=== PATIENT | female | born 1955 | race Hispanic/Latino ===

== ENCOUNTER 2018-08-10 14:26 | Emergency (ER) | payer BC ==
[~2018-08-10 14:26] MED LIST: GLIM4TAB3 PO; LORA1TAB3 PO; LOSA50TA25 PO; METF-444 PO; METO50TA18 PO; SITA100T12 PO; TURM500C9 PO; VITAMIN D PO
[2018-08-10 15:01] LABS: APPEARANCE,URINE Clear (CLEAR); BILIRUBIN,URINE Negative (NEGATIVE); COLOR,URINE Yellow (YELLOW); GLUCOSE, URINE (UA) Negative (NEGATIVE); KETONES,URINE Negative (NEGATIVE); LEUKOCYTE ESTERASE ,URINE Small (NEGATIVE); NITRATE,URINE Positive (NEGATIVE); OCCULT BLOOD,URINE Negative (NEGATIVE); PROTEIN,URINE Negative (NEGATIVE)
[2018-08-10 15:09] LABS: BACTERIA,URINE Few /HPF (None Seen); RBC,URINE None Seen /HPF (0-1); SQUAMOUS EPITHELIAL CELL,UR 0-2 /HPF (0-2)
[2018-08-10 15:40] LABS: BASOPHILS % (AUTO) 1.7 % (0.0-5.0); EOSINOPHILS % (AUTO) 1.4 % (0.0-8.0); LYMPHOCYTES % (AUTO) 26.6 % (21.0-51.0); MEAN CORPUSCULAR HEMOGLOBIN 31.4 pg (27.0-33.0); MEAN CORPUSCULAR HGB CONC 33.8 g/dL (32.0-36.0); MEAN CORPUSCULAR VOLUME 93.1 fL (79-99); MONOCYTES % (AUTO) 6.9 % (3.0-13.0); NEUTROPHILS % (AUTO) 63.4 % (40.0-77.0); PLATELET COUNT (AUTO) 288 K/uL (130-400); RED BLOOD CELL COUNT(AUTO) 4.29 MIL/uL (4.00-5.50); RED CELL DISTRIBUTION WIDTH 12.6 % (11.0-15.5); WHITE BLOOD COUNT (AUTO) 8.7 K/uL (4.8-10.8)
[2018-08-10 16:00] LABS: AMYLASE 57 U/L (25-115); CREATININE 0.7 mg/dL (0.5-1.5); LIPASE 315 U/L (114-286); POTASSIUM 3.8 mmol/L (3.5-5.1)
[2018-08-10 16:02] LABS: INR 1.01 (0.85-1.15); PARTIAL THROMBOPLASTIN TIME 28.5 SEC (26.3-35.5); PROTHROMBIN TIME 10.6 SEC (9.6-11.6)
[2018-08-10 16:05] LABS: ALBUMIN 3.4 g/dL (3.5-5.0); BILIRUBIN,TOTAL 0.3 mg/dL (0.2-1.0); TOTAL PROTEIN, SERUM 7.3 g/dL (6.0-8.3)
[2018-08-10 16:20] LABS: CREATINE KINASE, TOTAL 82 U/L (21-232); MYOGLOBIN 31 ng/mL (10-92); TROPONIN I < 0.04 ng/mL (0.00-0.06)
[2018-08-10] MEDS ORDERED: KETOROLAC TROMETHAMINE 30MG/ML ONE (17:17)
[2018-08-10] MEDS ORDERED: LEVOFLOXACIN 500 MG TABLET ONE (18:00)
== END 2018-08-10 18:17 | disposition home or self-care (01) ==
LOC: EDH 14:26
DX: R10.11 Right upper quadrant pain (principal); E11.65 Type 2 diabetes mellitus with hyperglycemia; R03.0 Elevated blood-pressure reading, without diagnosis of hypertension; N39.0 Urinary tract infection, site not specified; G43.909 Migraine, unspecified, not intractable, without status migrainosus; F41.9 Anxiety disorder, unspecified; Z88.8 Allergy status to other drugs, medicaments and biological substances; Z90.710 Acquired absence of both cervix and uterus; Z98.890 Other specified postprocedural states
CPT/HCPCS: 36415; 71045; 76705; 80053; 81001; 82150; 82550; 83690; 83874; 84484; 85025; 85610; 85730; 87077; 87088; 87186; 93005; 96374; 99285; J1885

== ENCOUNTER 2018-08-30 04:02 | Emergency (ER) | payer BC ==
[2018-08-30] MEDS ORDERED: ONDANSETRON HCL 4 MG/2 ML VIAL ONE (04:34)
[2018-08-30 04:49] LABS: BASOPHILS % (AUTO) 0.2 % (0.0-5.0); EOSINOPHILS % (AUTO) 0.3 % (0.0-8.0); HEMATOCRIT 41.1 % (36-48); MEAN CORPUSCULAR HEMOGLOBIN 31.8 pg (27.0-33.0); MEAN CORPUSCULAR HGB CONC 34.3 g/dL (32.0-36.0); MEAN CORPUSCULAR VOLUME 92.8 fL (79-99); MONOCYTES % (AUTO) 4.1 % (3.0-13.0); NEUTROPHILS % (AUTO) 93.4 % (40.0-77.0); PLATELET COUNT (AUTO) 226 K/uL (130-400); RED BLOOD CELL COUNT(AUTO) 4.43 MIL/uL (4.00-5.50); RED CELL DISTRIBUTION WIDTH 12.7 % (11.0-15.5); WHITE BLOOD COUNT (AUTO) 13.3 K/uL (4.8-10.8)
[2018-08-30 05:08] LABS: CREATININE 0.6 mg/dL (0.5-1.5); POTASSIUM 3.5 mmol/L (3.5-5.1)
[2018-08-30 05:16] LABS: ALBUMIN 3.3 g/dL (3.5-5.0); BILIRUBIN,DIRECT 0.1 mg/dL (0.0-0.3); BILIRUBIN,TOTAL 0.8 mg/dL (0.2-1.0)
[2018-08-30] MEDS ORDERED: KETOROLAC TROMETHAMINE 30MG/ML ONE (05:56)
== END 2018-08-30 06:33 | disposition home or self-care (01) ==
LOC: EDH 04:02
DX: K52.9 Noninfective gastroenteritis and colitis, unspecified (principal); I10 Essential (primary) hypertension; G43.909 Migraine, unspecified, not intractable, without status migrainosus; F41.9 Anxiety disorder, unspecified; Z90.710 Acquired absence of both cervix and uterus; Z88.8 Allergy status to other drugs, medicaments and biological substances
CPT/HCPCS: 36415; 74176; 80048; 80076; 82550; 83690; 85025; 93005; 96361; 96374; 96375; 99285; J1885; J2405

== ENCOUNTER 2019-05-25 07:13 | Emergency (ER) | payer BC ==
[~2019-05-25 07:13] MED LIST changes: -LOSA50TA25 PO; +LOSA50TA64 PO
[2019-05-25 08:11] LABS: APPEARANCE,URINE CLEAR (CLEAR); BILIRUBIN,URINE NEGATIVE (NEGATIVE); COLOR,URINE YELLOW (YELLOW); GLUCOSE, URINE (UA) 250 mg/dL (NEGATIVE); KETONES,URINE NEGATIVE (NEGATIVE); LEUKOCYTE ESTERASE ,URINE TRACE (NEGATIVE); NITRATE,URINE NEGATIVE (NEGATIVE); OCCULT BLOOD,URINE NEGATIVE (NEGATIVE); PH,URINE 5.5 (5.0-8.0); PROTEIN,URINE NEGATIVE (NEGATIVE)
[2019-05-25 08:12] LABS: BASOPHILS % (AUTO) 0.9 % (0.0-5.0); EOSINOPHILS % (AUTO) 1.2 % (0.0-8.0); HEMATOCRIT 42.7 % (36-48); LYMPHOCYTES % (AUTO) 22.1 % (21.0-51.0); MEAN CORPUSCULAR HEMOGLOBIN 32.5 pg (27.0-33.0); MEAN CORPUSCULAR HGB CONC 34.5 g/dL (32.0-36.0); MEAN CORPUSCULAR VOLUME 94.3 fL (79-99); MONOCYTES % (AUTO) 6.4 % (3.0-13.0); NEUTROPHILS % (AUTO) 69.4 % (40.0-77.0); PLATELET COUNT (AUTO) 244 K/uL (130-400); RED BLOOD CELL COUNT(AUTO) 4.53 MIL/uL (4.00-5.50); RED CELL DISTRIBUTION WIDTH 13.4 % (11.0-15.5); WHITE BLOOD COUNT (AUTO) 6.7 K/uL (4.8-10.8)
[2019-05-25] MEDS ORDERED: DiphenhydrAMINE HCL 50 MG/ML VIAL ONE (08:29)
[2019-05-25] MEDS ORDERED: METHYLPREDNISOLONE SOD SUCC 40MG/ML 1ML ONE (08:29)
[2019-05-25] MEDS ORDERED: SODIUM CHLORIDE 0.9% 500ML 500 ML IV ONE (08:30)
[2019-05-25 08:38] LABS: BACTERIA,URINE Few /HPF (None Seen); RBC,URINE 0-1 /HPF (0-1); WBC,URINE 0-1 /HPF (0-1)
[2019-05-25 08:42] LABS: CREATININE 0.6 mg/dL (0.5-1.5); POTASSIUM 3.7 mmol/L (3.5-5.1)
[2019-05-25 08:50] LABS: ALBUMIN 3.4 g/dL (3.5-5.0); BILIRUBIN,DIRECT 0.1 mg/dL (0.0-0.3); BILIRUBIN,TOTAL 0.6 mg/dL (0.2-1.0); TOTAL PROTEIN, SERUM 7.1 g/dL (6.0-8.3)
[2019-05-25] MEDS ORDERED: INSULIN HUMULIN R 100 UNIT/ML 3ML ONE (09:31)
[2019-05-25] MEDS ORDERED: KETOROLAC TROMETHAMINE 30MG/ML ONE (10:19)
== END 2019-05-25 11:18 | disposition home or self-care (01) ==
LOC: EDH 07:13
DX: G43.009 Migraine without aura, not intractable, without status migrainosus (principal); E11.65 Type 2 diabetes mellitus with hyperglycemia; H54.3 Unqualified visual loss, both eyes; I10 Essential (primary) hypertension; F41.9 Anxiety disorder, unspecified; Z88.8 Allergy status to other drugs, medicaments and biological substances; Z98.890 Other specified postprocedural states; Z90.710 Acquired absence of both cervix and uterus; Z79.899 Other long term (current) drug therapy
CPT/HCPCS: 36415; 70450; 80048; 80076; 81001; 85025; 93005; 96374; 96375; 99285; J1200; J1815; J1885; J2920; J7040

== ENCOUNTER 2019-07-23 17:53 | Emergency (ER) | payer BC ==
[2019-07-23] MEDS ORDERED: PROCHLORPERAZINE EDISYLATE 10 MG/2 ML VIAL ONE (18:28)
[2019-07-23] MEDS ORDERED: DiphenhydrAMINE HCL 50 MG/ML VIAL ONE (18:28)
[2019-07-23] MEDS ORDERED: KETOROLAC TROMETHAMINE 30MG/ML ONE (18:28)
[2019-07-23] MEDS ORDERED: SODIUM CHLORIDE 0.9% 1000ML 1,000 ML IV ONE (18:29)
[2019-07-23 18:56] LABS: APPEARANCE,URINE Clear (CLEAR); BILIRUBIN,URINE Negative (NEGATIVE); COLOR,URINE Yellow (YELLOW); GLUCOSE, URINE (UA) Negative (NEGATIVE); KETONES,URINE Negative (NEGATIVE); LEUKOCYTE ESTERASE ,URINE Small (NEGATIVE); NITRATE,URINE Negative (NEGATIVE); OCCULT BLOOD,URINE Negative (NEGATIVE); PROTEIN,URINE Negative (NEGATIVE)
[2019-07-23 19:10] LABS: BACTERIA,URINE Rare /HPF (None Seen); RBC,URINE None Seen /HPF (0-1); WBC,URINE 0-1 /HPF (0-1)
== END 2019-07-23 20:11 | disposition home or self-care (01) ==
LOC: EDH 17:53
DX: G43.909 Migraine, unspecified, not intractable, without status migrainosus (principal); I10 Essential (primary) hypertension; E11.9 Type 2 diabetes mellitus without complications; F41.9 Anxiety disorder, unspecified; Z88.8 Allergy status to other drugs, medicaments and biological substances
CPT/HCPCS: 81001; 96374; 96375; 99284; J0780; J1200; J1885; J7030

== ENCOUNTER 2019-08-02 07:44 | Emergency (ER) | payer BC ==
[~2019-08-02 07:44] MED LIST changes: -GLIM4TAB3 PO; +GLIM4TAB5 PO
[2019-08-02] MEDS ORDERED: LIDOCAINE 5% TOPICAL PATCH TP ONE ×2 (08:19→08:23)
[2019-08-02] MEDS ORDERED: DEXAMETHASONE SOD PHOSPHATE 10MG/ML 1ML VIAL ONE (08:19)
[2019-08-02] MEDS ORDERED: KETOROLAC TROMETHAMINE 60 MG/2 ML VIAL ONE (08:19)
== END 2019-08-02 09:05 | disposition home or self-care (01) ==
LOC: EDH 07:44
DX: M50.30 Other cervical disc degeneration, unspecified cervical region (principal); G43.909 Migraine, unspecified, not intractable, without status migrainosus; H57.89 Other specified disorders of eye and adnexa; F41.9 Anxiety disorder, unspecified; I10 Essential (primary) hypertension; Z88.8 Allergy status to other drugs, medicaments and biological substances; Z79.4 Long term (current) use of insulin; Z98.890 Other specified postprocedural states; Z90.710 Acquired absence of both cervix and uterus
CPT/HCPCS: 96372 ×2; 99284; J1100; J1885

== ENCOUNTER 2020-01-22 00:27 | Emergency (ER) | payer BC ==
[~2020-01-22 00:27] MED LIST changes: +GLIM4TAB36 PO; -GLIM4TAB5 PO
[2020-01-22 00:59] LABS: APPEARANCE,URINE CLOUDY (CLEAR); BILIRUBIN,URINE NEGATIVE (NEGATIVE); COLOR,URINE YELLOW (YELLOW); GLUCOSE, URINE (UA) NEGATIVE (NEGATIVE); KETONES,URINE NEGATIVE (NEGATIVE); LEUKOCYTE ESTERASE ,URINE NEGATIVE (NEGATIVE); NITRATE,URINE NEGATIVE (NEGATIVE); OCCULT BLOOD,URINE NEGATIVE (NEGATIVE); PROTEIN,URINE NEGATIVE (NEGATIVE)
[2020-01-22 01:10] LABS: BASOPHILS % (AUTO) 0.9 % (0.0-5.0); EOSINOPHILS % (AUTO) 1.5 % (0.0-8.0); HEMATOCRIT 42.2 % (36-48); LYMPHOCYTES % (AUTO) 23.1 % (21.0-51.0); MEAN CORPUSCULAR HEMOGLOBIN 32.6 pg (27.0-33.0); MEAN CORPUSCULAR HGB CONC 33.4 g/dL (32.0-36.0); MEAN CORPUSCULAR VOLUME 97.7 fL (79-99); MONOCYTES % (AUTO) 7.8 % (3.0-13.0); NEUTROPHILS % (AUTO) 66.3 % (40.0-77.0); PLATELET COUNT (AUTO) 317 K/uL (130-400); RED BLOOD CELL COUNT(AUTO) 4.32 MIL/uL (4.00-5.50); RED CELL DISTRIBUTION WIDTH 11.9 % (11.0-15.5); WHITE BLOOD COUNT (AUTO) 11.4 K/uL (4.8-10.8)
[2020-01-22 01:23] LABS: CREATININE 0.8 mg/dL (0.5-1.5); POTASSIUM 3.9 mmol/L (3.5-5.1)
[2020-01-22 01:28] LABS: ALBUMIN 3.3 g/dL (3.5-5.0); BILIRUBIN,TOTAL 0.3 mg/dL (0.2-1.0); TOTAL PROTEIN, SERUM 7.2 g/dL (6.0-8.3)
[2020-01-22 01:31] LABS: BACTERIA,URINE Few /HPF (None Seen); RBC,URINE 0-1 /HPF (0-1); WBC,URINE 0-1 /HPF (0-1)
[2020-01-22 01:32] LABS: AMORPHOUS SEDIMENT,UR Many /LPF (None Seen); CALCIUM OXALATE CRYSTALS,UR Moderate /LPF (None Seen)
[2020-01-22] MEDS ORDERED: ONDANSETRON HCL 4 MG/2 ML VIAL ONE (02:12)
[2020-01-22] MEDS ORDERED: SODIUM CHLORIDE 0.9% 1000ML 1,000 ML IV ONE (02:13)
[2020-01-22 03:50] LABS: CREATINE KINASE, TOTAL 99 U/L (21-232); LIPASE 251 U/L (114-286)
[2020-01-22] MEDS ORDERED: CEFTRIAXONE SODIUM 1 GM ONE (04:02)
[2020-01-22] MEDS ORDERED: SODIUM CHLORIDE 0.9% 100 ML IV ONE (04:02)
== END 2020-01-22 04:30 | disposition home or self-care (01) ==
LOC: EDH 00:27
DX: K52.9 Noninfective gastroenteritis and colitis, unspecified (principal); F41.9 Anxiety disorder, unspecified; E11.9 Type 2 diabetes mellitus without complications; I10 Essential (primary) hypertension; G43.909 Migraine, unspecified, not intractable, without status migrainosus; Z90.49 Acquired absence of other specified parts of digestive tract; Z90.710 Acquired absence of both cervix and uterus; Z79.899 Other long term (current) drug therapy; Z88.9 Allergy status to unspecified drugs, medicaments and biological substances; Z88.8 Allergy status to other drugs, medicaments and biological substances; Z88.6 Allergy status to analgesic agent; Z88.2 Allergy status to sulfonamides
CPT/HCPCS: 36415; 74176; 80053; 81001; 82550; 83690; 84484; 85025; 93005; 96361; 96374; 96375; 99285; J0696; J2405; J7030

== ENCOUNTER 2020-08-08 12:20 | Emergency (ER) | payer BC ==
[2020-08-08 13:31] LABS: EOSINOPHILS % (AUTO) 1.4 % (0.0-8.0); HEMATOCRIT 40.6 % (36-48); LYMPHOCYTES % (AUTO) 24.4 % (21.0-51.0); MEAN CORPUSCULAR HEMOGLOBIN 33.1 pg (27.0-33.0); MEAN CORPUSCULAR HGB CONC 34.5 g/dL (32.0-36.0); MONOCYTES % (AUTO) 7.8 % (3.0-13.0); NEUTROPHILS % (AUTO) 65.1 % (40.0-77.0); PLATELET COUNT (AUTO) 287 K/uL (130-400); RED BLOOD CELL COUNT(AUTO) 4.23 MIL/uL (4.00-5.50); RED CELL DISTRIBUTION WIDTH 11.5 % (11.0-15.5); WHITE BLOOD COUNT (AUTO) 7.8 K/uL (4.8-10.8)
[2020-08-08] MEDS ORDERED: PROCHLORPERAZINE EDISYLATE 10 MG/2 ML VIAL ONE (13:41)
[2020-08-08 13:47] LABS: CREATININE 0.7 mg/dL (0.5-1.5); POTASSIUM 3.8 mmol/L (3.5-5.1)
[2020-08-08 13:50] LABS: INR 0.93 (0.85-1.15); PARTIAL THROMBOPLASTIN TIME 26.1 SEC (26.3-35.5); PROTHROMBIN TIME 10.1 SEC (9.6-11.6)
[2020-08-08 14:00] LABS: B-TYPE NATRIURETIC PEPTIDE 40 pg/mL (0-100)
[2020-08-08 14:05] LABS: ALBUMIN 3.3 g/dL (3.5-5.0); BILIRUBIN,TOTAL 0.4 mg/dL (0.2-1.0); TOTAL PROTEIN, SERUM 7.2 g/dL (6.0-8.3)
== END 2020-08-08 15:07 | disposition home or self-care (01) ==
LOC: EDH 12:20
DX: R00.2 Palpitations (principal); F41.9 Anxiety disorder, unspecified; I10 Essential (primary) hypertension; G43.909 Migraine, unspecified, not intractable, without status migrainosus; E11.9 Type 2 diabetes mellitus without complications; Z90.49 Acquired absence of other specified parts of digestive tract; Z90.710 Acquired absence of both cervix and uterus; Z88.3 Allergy status to other anti-infective agents; Z88.8 Allergy status to other drugs, medicaments and biological substances; Z88.6 Allergy status to analgesic agent
CPT/HCPCS: 36415; 71045; 80053; 82550; 83880; 84484; 85025; 85610; 85730; 93005; 96374; 99285; J0780

== ENCOUNTER 2020-08-18 16:30 | Emergency (ER) | payer BC | END 2020-08-18 17:23 | disposition home or self-care (01) | LOC: EDH 16:30 | DX: N64.51 Induration of breast (principal); I10 Essential (primary) hypertension; F41.9 Anxiety disorder, unspecified; E11.9 Type 2 diabetes mellitus without complications; G43.909 Migraine, unspecified, not intractable, without status migrainosus; Z88.8 Allergy status to other drugs, medicaments and biological substances; Z90.710 Acquired absence of both cervix and uterus | CPT/HCPCS: 99281 ==

== ENCOUNTER 2020-11-28 14:45 | Emergency (ER) | payer BC ==
[2020-11-28] MEDS ORDERED: ONDANSETRON HCL 4 MG/2 ML VIAL ONE (15:32)
[2020-11-28] MEDS ORDERED: KETOROLAC TROMETHAMINE 30MG/ML ONE (15:32)
[2020-11-28 15:38] LABS: APPEARANCE,URINE Clear (CLEAR); BILIRUBIN,URINE Negative (NEGATIVE); COLOR,URINE Yellow (YELLOW); GLUCOSE, URINE (UA) Negative (NEGATIVE); KETONES,URINE Negative (NEGATIVE); LEUKOCYTE ESTERASE ,URINE Negative (NEGATIVE); NITRATE,URINE Negative (NEGATIVE); OCCULT BLOOD,URINE Negative (NEGATIVE); PROTEIN,URINE Negative (NEGATIVE)
[2020-11-28 16:07] LABS: BASOPHILS % (AUTO) 0.9 % (0.0-5.0); LYMPHOCYTES % (AUTO) 21.1 % (21.0-51.0); MEAN CORPUSCULAR HEMOGLOBIN 32.5 pg (27.0-33.0); MEAN CORPUSCULAR HGB CONC 34.4 g/dL (32.0-36.0); MEAN CORPUSCULAR VOLUME 94.5 fL (79-99); MONOCYTES % (AUTO) 6.2 % (3.0-13.0); NEUTROPHILS % (AUTO) 70.6 % (40.0-77.0); PLATELET COUNT (AUTO) 257 K/uL (130-400); RED BLOOD CELL COUNT(AUTO) 4.34 MIL/uL (4.00-5.50); RED CELL DISTRIBUTION WIDTH 11.8 % (11.0-15.5); WHITE BLOOD COUNT (AUTO) 9.3 K/uL (4.8-10.8)
[2020-11-28 16:13] LABS: CREATININE 0.6 mg/dL (0.5-1.5); POTASSIUM 3.8 mmol/L (3.5-5.1)
[2020-11-28 16:17] LABS: INR 1.05 (0.85-1.15); PROTHROMBIN TIME 11.2 SEC (9.6-11.6)
[2020-11-28 16:18] LABS: PARTIAL THROMBOPLASTIN TIME 23.2 SEC (26.3-35.5)
[2020-11-28 16:20] LABS: ALBUMIN 3.4 g/dL (3.5-5.0); BILIRUBIN,TOTAL 0.4 mg/dL (0.2-1.0); TOTAL PROTEIN, SERUM 7.5 g/dL (6.0-8.3)
[2020-11-28] MEDS ORDERED: IOHEXOL-350 75 ML VIAL IV ONE (16:30)
== END 2020-11-28 17:26 | disposition home or self-care (01) ==
LOC: EDH 14:45
DX: R10.12 Left upper quadrant pain (principal); F41.9 Anxiety disorder, unspecified; E11.9 Type 2 diabetes mellitus without complications; I10 Essential (primary) hypertension; G43.909 Migraine, unspecified, not intractable, without status migrainosus; Z90.710 Acquired absence of both cervix and uterus; Z90.49 Acquired absence of other specified parts of digestive tract; Z88.8 Allergy status to other drugs, medicaments and biological substances; Z88.6 Allergy status to analgesic agent; Z88.1 Allergy status to other antibiotic agents
CPT/HCPCS: 36415; 71045; 74177; 80053; 81003; 83690; 84484; 85025; 85610; 85730; 93005; 96361; 96374; 96375; 99285; J1885; J2405; Q9967

== ENCOUNTER 2021-01-27 12:18 | Observation (INO) | payer BC ==
[~2021-01-27] VITALS: Ht 165.1 cm; Wt 90.7 kg
[2021-01-27 12:48] LABS: BASOPHILS % (AUTO) 0.9 % (0.0-5.0); EOSINOPHILS % (AUTO) 0.8 % (0.0-8.0); LYMPHOCYTES % (AUTO) 19.2 % (21.0-51.0); MEAN CORPUSCULAR HEMOGLOBIN 33.2 pg (27.0-33.0); MEAN CORPUSCULAR HGB CONC 34.8 g/dL (32.0-36.0); MEAN CORPUSCULAR VOLUME 95.5 fL (79-99); PLATELET COUNT (AUTO) 276 K/uL (130-400); RED BLOOD CELL COUNT(AUTO) 4.19 MIL/uL (4.00-5.50); WHITE BLOOD COUNT (AUTO) 7.8 K/uL (4.8-10.8)
[2021-01-27 13:00] LABS: CREATININE 0.6 mg/dL (0.5-1.5); INR 1.05 (0.85-1.15); POTASSIUM 3.7 mmol/L (3.5-5.1); PROTHROMBIN TIME 11.4 SEC (9.6-11.6)
[2021-01-27 13:01] LABS: PARTIAL THROMBOPLASTIN TIME 27.3 SEC (26.3-35.5)
[2021-01-27 13:05] LABS: ALBUMIN 3.4 g/dL (3.5-5.0); BILIRUBIN,TOTAL 0.5 mg/dL (0.2-1.0); TOTAL PROTEIN, SERUM 7.2 g/dL (6.0-8.3)
[2021-01-27 13:10] LABS: APPEARANCE,URINE Cloudy (CLEAR); BILIRUBIN,URINE Negative (NEGATIVE); COLOR,URINE Yellow (YELLOW); GLUCOSE, URINE (UA) TRACE mg/dL (NEGATIVE); KETONES,URINE Negative (NEGATIVE); LEUKOCYTE ESTERASE ,URINE Negative (NEGATIVE); NITRATE,URINE Negative (NEGATIVE); OCCULT BLOOD,URINE Negative (NEGATIVE); PROTEIN,URINE Negative (NEGATIVE)
[2021-01-27 13:16] LABS: BACTERIA,URINE Few /HPF (None Seen); RBC,URINE 0-1 /HPF (0-1); WBC,URINE 0-1 /HPF (0-1); YEAST,URINE BUDDING Few /HPF (None Seen)
[2021-01-27] MEDS ORDERED: NITROGLYCERIN 1GM/1 INCH PACKET TD ONE (14:37)
[2021-01-27] MEDS: SODIUM CHLORIDE 0.9% 1000ML 1,000 ML IV SCH (16:00)
[2021-01-27] MEDS ORDERED: ACETAMINOPHEN 325 MG TAB PO PRN ×2 (16:00)
[2021-01-27] MEDS ORDERED: MORPHINE SULFATE 2 MG/ML 1ML SYG IV PRN (16:00)
[2021-01-27] MEDS: INSULIN HUMULIN R 100 UNIT/ML 3ML SQ SCH (16:00)
[2021-01-27] MEDS ORDERED: HYDRALAZINE HCL 20 MG/ML VIAL IV PRN (16:00)
[2021-01-27] MEDS ORDERED: ONDANSETRON HCL 4 MG/2 ML VIAL IV PRN (16:00)
[2021-01-27] MEDS ORDERED: LACTULOSE 20 GM/30 ML UDCUP PO PRN (16:00)
[2021-01-27 16:29] LABS: HEMOGLOBIN A1C 6.9 % (4.0-6.0)
[2021-01-27 16:42] LABS: THYROID STIMULATING HORMONE 0.69 uIU/mL (0.36-3.74)
[2021-01-27] MEDS ORDERED: ONDANSETRON HCL 4 MG/2 ML VIAL ONE (16:57)
[2021-01-27] MEDS ORDERED: MORPHINE SULFATE 2 MG/ML 1ML SYG ONE (16:57)
[2021-01-27] MEDS ORDERED: BISACODYL 5 MG TABLET.DR PO ONE (20:13)
[2021-01-27] MEDS ORDERED: FAMOTIDINE/PF 20 MG/2 ML VIAL IV ONE (20:14)
[2021-01-27] MEDS ORDERED: SODIUM CHLORIDE 0.9% 1000ML 1,000 ML IV ONE (20:15)
[2021-01-27] MEDS: FAMOTIDINE/PF 20 MG/2 ML VIAL IV SCH (21:00)
[2021-01-27] MEDS: BISACODYL 5 MG TABLET.DR PO SCH (21:00)
[2021-01-28] MEDS ORDERED: ACETAMINOPHEN 325 MG TAB ONE ×2 (00:06→08:02)
[2021-01-28] MEDS: SODIUM CHLORIDE 0.9% 1000ML 1,000 ML IV SCH ×3 (02:00→22:00)
[2021-01-28 05:34] LABS: BASOPHILS % (AUTO) 0.8 % (0.0-5.0); EOSINOPHILS % (AUTO) 1.9 % (0.0-8.0); HEMATOCRIT 42.7 % (36-48); LYMPHOCYTES % (AUTO) 32.3 % (21.0-51.0); MEAN CORPUSCULAR HEMOGLOBIN 32.3 pg (27.0-33.0); MEAN CORPUSCULAR VOLUME 97.7 fL (79-99); MONOCYTES % (AUTO) 7.1 % (3.0-13.0); NEUTROPHILS % (AUTO) 57.8 % (40.0-77.0); PLATELET COUNT (AUTO) 271 K/uL (130-400); RED BLOOD CELL COUNT(AUTO) 4.37 MIL/uL (4.00-5.50); RED CELL DISTRIBUTION WIDTH 11.9 % (11.0-15.5); WHITE BLOOD COUNT (AUTO) 7.7 K/uL (4.8-10.8)
[2021-01-28 06:02] LABS: CREATININE 0.6 mg/dL (0.5-1.5); POTASSIUM 3.8 mmol/L (3.5-5.1)
[2021-01-28] MEDS: FAMOTIDINE/PF 20 MG/2 ML VIAL IV SCH ×2 (09:00→20:08)
[2021-01-28] MEDS: BISACODYL 5 MG TABLET.DR PO SCH ×2 (09:00→20:07)
[2021-01-28] MEDS ORDERED: FAMOTIDINE/PF 20 MG/2 ML VIAL IV ONE (09:49)
[2021-01-28] MEDS: POLYETHYLENE GLYCOL 3350 17 GM POWD.PACK PO SCH (14:14)
[2021-01-28 16:00] VITALS: BP 164/74
[2021-01-28] MEDS ORDERED: PEG 3350/NA SULF,BICARB,CL/KCL 4000 ML SOLN PO ONE (19:15)
[2021-01-28 20:13] VITALS: BP 174/84
[2021-01-28] MEDS: REFRESH EYE DROPS OU SCH (20:14)
[2021-01-28] MEDS: INSULIN HUMULIN R 100 UNIT/ML 3ML SQ SCH (20:18)
[2021-01-28] MEDS ORDERED: LOSARTAN 50 MG TABLET PO SCH (22:45)
[2021-01-29] VITALS (12 sets, daily range): BP systolic 120–158; BP diastolic 61–68
[2021-01-29] MEDS: INSULIN HUMULIN R 100 UNIT/ML 3ML SQ SCH ×3 (06:56→16:30)
[2021-01-29 07:07] LABS: EOSINOPHILS % (AUTO) 1.6 % (0.0-8.0); HEMATOCRIT 39.7 % (36-48); LYMPHOCYTES % (AUTO) 24.8 % (21.0-51.0); MEAN CORPUSCULAR HEMOGLOBIN 32.8 pg (27.0-33.0); MEAN CORPUSCULAR HGB CONC 33.2 g/dL (32.0-36.0); MEAN CORPUSCULAR VOLUME 98.8 fL (79-99); NEUTROPHILS % (AUTO) 64.4 % (40.0-77.0); PLATELET COUNT (AUTO) 253 K/uL (130-400); RED BLOOD CELL COUNT(AUTO) 4.02 MIL/uL (4.00-5.50); WHITE BLOOD COUNT (AUTO) 6.3 K/uL (4.8-10.8)
[2021-01-29 07:35] LABS: CREATININE 0.7 mg/dL (0.5-1.5); POTASSIUM 3.6 mmol/L (3.5-5.1)
[2021-01-29] MEDS: SODIUM CHLORIDE 0.9% 1000ML 1,000 ML IV SCH (08:00)
[2021-01-29] MEDS ORDERED: PROPOFOL 10 MG/ML 20ML VIAL IV ONE (08:50)
[2021-01-29] MEDS ORDERED: INSULIN GLARGINE 100 UNITS/ML 10 ML VIAL SQ SCH (09:00)
[2021-01-29] MEDS: REFRESH EYE DROPS OU SCH (09:00)
[2021-01-29] MEDS ORDERED: LOSARTAN 50 MG TABLET PO SCH (09:00)
[2021-01-29] MEDS ORDERED: METOPROLOL SUCCINATE 50 MG TAB.SR.24H PO SCH (09:00)
[2021-01-29] MEDS: FAMOTIDINE/PF 20 MG/2 ML VIAL IV SCH (09:21)
[2021-01-29] MEDS: POLYETHYLENE GLYCOL 3350 17 GM POWD.PACK PO SCH (09:28)
[2021-01-29] MEDS: BISACODYL 5 MG TABLET.DR PO SCH (09:28)
[2021-01-29] MEDS ORDERED: VALACYCLOVIR HCL 500 MG TABLET PO SCH (12:00)
[2021-01-29] MEDS ORDERED: METR-172 PO (16:45)
[2021-01-29] MEDS ORDERED: CIPR500S5 PO (16:45)
[2021-01-29] MEDS ORDERED: SENN8.6T32 PO (17:42)
[2021-01-29] MEDS ORDERED: DOCU-116 PO (17:42)
== END 2021-01-29 18:21 | disposition home or self-care (01) ==
LOC: EDH 12:18 → EDHIP 15:51 → 3BH 01-28 11:45
PROVIDERS: ADMIT Internal Medicine; ATTEND Internal Medicine
DX: K29.70 Gastritis, unspecified, without bleeding (principal); K59.09 Other constipation; R07.89 Other chest pain; R00.2 Palpitations; K57.30 Diverticulosis of large intestine without perforation or abscess without bleeding; K57.32 Diverticulitis of large intestine without perforation or abscess without bleeding; E11.9 Type 2 diabetes mellitus without complications; I10 Essential (primary) hypertension; F41.9 Anxiety disorder, unspecified; M19.90 Unspecified osteoarthritis, unspecified site; G43.909 Migraine, unspecified, not intractable, without status migrainosus; E78.5 Hyperlipidemia, unspecified; Z86.19 Personal history of other infectious and parasitic diseases; Z98.49 Cataract extraction status, unspecified eye; Z90.710 Acquired absence of both cervix and uterus; Z79.84 Long term (current) use of oral hypoglycemic drugs; Z79.899 Other long term (current) drug therapy; Z88.6 Allergy status to analgesic agent; Z88.8 Allergy status to other drugs, medicaments and biological substances
CPT/HCPCS: 36415 ×3; 43239; 71045; 74176; 80048 ×2; 80053; 80061; 81001; 82550; 82948 ×6; 83036; 83690; 83735; 84443; 84484 ×4; 85025 ×3; 85610; 85730; 93005 ×4; 96361; 96372; 96374; 96376; 99291; A4215; A4222; A4223; A4606; A4620; A4657; G0378 ×48; J2405; J2704; J3490 ×4; J7030 ×2

== ENCOUNTER 2021-02-13 15:05 | Emergency (ER) | payer BC ==
[~2021-02-13 15:05] MED LIST changes: +CIPR500S5 PO; +DOCU-116 PO; +METR-172 PO; +SENN8.6T32 PO
[2021-02-13 16:12] LABS: BASOPHILS % (AUTO) 0.7 % (0.0-5.0); HEMATOCRIT 41.7 % (36-48); LYMPHOCYTES % (AUTO) 17.6 % (21.0-51.0); MEAN CORPUSCULAR HEMOGLOBIN 32.9 pg (27.0-33.0); MEAN CORPUSCULAR HGB CONC 33.8 g/dL (32.0-36.0); MEAN CORPUSCULAR VOLUME 97.4 fL (79-99); MONOCYTES % (AUTO) 5.8 % (3.0-13.0); NEUTROPHILS % (AUTO) 74.7 % (40.0-77.0); PLATELET COUNT (AUTO) 305 K/uL (130-400); RED BLOOD CELL COUNT(AUTO) 4.28 MIL/uL (4.00-5.50); RED CELL DISTRIBUTION WIDTH 11.9 % (11.0-15.5); WHITE BLOOD COUNT (AUTO) 9.4 K/uL (4.8-10.8)
[2021-02-13 16:23] LABS: APPEARANCE,URINE Clear (CLEAR); BILIRUBIN,URINE Negative (NEGATIVE); COLOR,URINE Yellow (YELLOW); GLUCOSE, URINE (UA) Negative (NEGATIVE); KETONES,URINE Negative (NEGATIVE); LEUKOCYTE ESTERASE ,URINE Negative (NEGATIVE); NITRATE,URINE Negative (NEGATIVE); OCCULT BLOOD,URINE Negative (NEGATIVE); PROTEIN,URINE Negative (NEGATIVE)
[2021-02-13 16:28] LABS: CREATININE 0.8 mg/dL (0.5-1.5); POTASSIUM 3.9 mmol/L (3.5-5.1)
[2021-02-13 16:35] LABS: ALBUMIN 3.4 g/dL (3.5-5.0); BILIRUBIN,TOTAL 0.4 mg/dL (0.2-1.0); TOTAL PROTEIN, SERUM 7.2 g/dL (6.0-8.3)
[2021-02-13 16:36] LABS: INR 1.04 (0.85-1.15); PROTHROMBIN TIME 10.8 SEC (9.6-11.6)
== END 2021-02-13 20:21 | disposition home or self-care (01) ==
LOC: EDH 15:05
DX: R00.2 Palpitations (principal); F41.1 Generalized anxiety disorder; E11.9 Type 2 diabetes mellitus without complications; I10 Essential (primary) hypertension; G43.909 Migraine, unspecified, not intractable, without status migrainosus; Z90.49 Acquired absence of other specified parts of digestive tract; Z90.710 Acquired absence of both cervix and uterus; Z88.8 Allergy status to other drugs, medicaments and biological substances; Z88.6 Allergy status to analgesic agent; Z88.1 Allergy status to other antibiotic agents
CPT/HCPCS: 36415; 71045; 80053; 81003; 82550; 84484; 85025; 85610; 85730; 93005

== ENCOUNTER 2021-03-12 14:06 | Emergency (ER) | payer BC ==
[2021-03-12] MEDS ORDERED: LORAZEPAM 1 MG TABLET ONE (14:33)
[2021-03-12 14:57] LABS: BASOPHILS % (AUTO) 0.9 % (0.0-5.0); EOSINOPHILS % (AUTO) 1.2 % (0.0-8.0); HEMATOCRIT 41.6 % (36-48); MEAN CORPUSCULAR HEMOGLOBIN 32.2 pg (27.0-33.0); MEAN CORPUSCULAR HGB CONC 32.9 g/dL (32.0-36.0); MEAN CORPUSCULAR VOLUME 97.7 fL (79-99); MONOCYTES % (AUTO) 6.3 % (3.0-13.0); NEUTROPHILS % (AUTO) 70.4 % (40.0-77.0); PLATELET COUNT (AUTO) 244 K/uL (130-400); RED BLOOD CELL COUNT(AUTO) 4.26 MIL/uL (4.00-5.50); RED CELL DISTRIBUTION WIDTH 11.9 % (11.0-15.5); WHITE BLOOD COUNT (AUTO) 9.3 K/uL (4.8-10.8)
[2021-03-12 14:58] LABS: APPEARANCE,URINE Clear (CLEAR); BILIRUBIN,URINE Negative (NEGATIVE); COLOR,URINE Yellow (YELLOW); GLUCOSE, URINE (UA) Negative (NEGATIVE); KETONES,URINE Negative (NEGATIVE); LEUKOCYTE ESTERASE ,URINE Trace (NEGATIVE); NITRATE,URINE Negative (NEGATIVE); OCCULT BLOOD,URINE Negative (NEGATIVE); PH,URINE 7.5 (5.0-8.0); PROTEIN,URINE Negative (NEGATIVE)
[2021-03-12 15:11] LABS: CREATININE 0.7 mg/dL (0.5-1.5); POTASSIUM 3.7 mmol/L (3.5-5.1)
[2021-03-12 15:15] LABS: ALBUMIN 3.4 g/dL (3.5-5.0); BILIRUBIN,TOTAL 0.3 mg/dL (0.2-1.0); TOTAL PROTEIN, SERUM 7.3 g/dL (6.0-8.3)
[2021-03-12 15:24] LABS: BACTERIA,URINE Few /HPF (None Seen); RBC,URINE 0-1 /HPF (0-1); SQUAMOUS EPITHELIAL CELL,UR Few /HPF (0-2)
== END 2021-03-12 15:32 | disposition home or self-care (01) ==
LOC: EDH 14:06
DX: F41.1 Generalized anxiety disorder (principal); R00.2 Palpitations; I10 Essential (primary) hypertension; G43.909 Migraine, unspecified, not intractable, without status migrainosus; E11.9 Type 2 diabetes mellitus without complications; Z90.710 Acquired absence of both cervix and uterus; Z88.6 Allergy status to analgesic agent; Z88.8 Allergy status to other drugs, medicaments and biological substances
CPT/HCPCS: 36415; 71045; 80053; 81001; 84484; 85025; 93005

== ENCOUNTER 2021-03-17 08:52 | Emergency (ER) | payer BC ==
[2021-03-17 09:39] LABS: APPEARANCE,URINE Cloudy (CLEAR); BILIRUBIN,URINE Negative (NEGATIVE); COLOR,URINE Yellow (YELLOW); GLUCOSE, URINE (UA) Negative (NEGATIVE); KETONES,URINE Negative (NEGATIVE); LEUKOCYTE ESTERASE ,URINE Trace (NEGATIVE); NITRATE,URINE Negative (NEGATIVE); OCCULT BLOOD,URINE Negative (NEGATIVE); PROTEIN,URINE Negative (NEGATIVE)
[2021-03-17 09:46] LABS: BACTERIA,URINE Moderate /HPF (None Seen); RBC,URINE None Seen /HPF (0-1); SQUAMOUS EPITHELIAL CELL,UR Moderate /HPF (0-2); WBC,URINE 0-1 /HPF (0-1)
[2021-03-17] MEDS ORDERED: ONDANSETRON HCL 4 MG/2 ML VIAL ONE (09:52)
[2021-03-17] MEDS ORDERED: SODIUM CHLORIDE 0.9% 1000ML 1,000 ML IV ONE (09:53)
[2021-03-17 09:57] LABS: BASOPHILS % (AUTO) 0.9 % (0.0-5.0); EOSINOPHILS % (AUTO) 0.9 % (0.0-8.0); HEMATOCRIT 42.3 % (36-48); LYMPHOCYTES % (AUTO) 19.6 % (21.0-51.0); MEAN CORPUSCULAR HEMOGLOBIN 31.8 pg (27.0-33.0); MEAN CORPUSCULAR HGB CONC 33.3 g/dL (32.0-36.0); MEAN CORPUSCULAR VOLUME 95.5 fL (79-99); MONOCYTES % (AUTO) 6.7 % (3.0-13.0); NEUTROPHILS % (AUTO) 71.5 % (40.0-77.0); PLATELET COUNT (AUTO) 285 K/uL (130-400); RED BLOOD CELL COUNT(AUTO) 4.43 MIL/uL (4.00-5.50); RED CELL DISTRIBUTION WIDTH 11.7 % (11.0-15.5)
[2021-03-17 10:09] LABS: CREATININE 0.6 mg/dL (0.5-1.5); POTASSIUM 3.8 mmol/L (3.5-5.1)
[2021-03-17 10:16] LABS: ALBUMIN 3.3 g/dL (3.5-5.0); BILIRUBIN,TOTAL 0.7 mg/dL (0.2-1.0); TOTAL PROTEIN, SERUM 7.2 g/dL (6.0-8.3)
== END 2021-03-17 12:21 | disposition home or self-care (01) ==
LOC: EDH 08:52
DX: K59.00 Constipation, unspecified (principal); R11.0 Nausea; F41.9 Anxiety disorder, unspecified; E11.9 Type 2 diabetes mellitus without complications; G43.909 Migraine, unspecified, not intractable, without status migrainosus; I10 Essential (primary) hypertension; Z90.49 Acquired absence of other specified parts of digestive tract; Z90.710 Acquired absence of both cervix and uterus; Z88.6 Allergy status to analgesic agent; Z88.8 Allergy status to other drugs, medicaments and biological substances; Z88.2 Allergy status to sulfonamides; Z88.9 Allergy status to unspecified drugs, medicaments and biological substances
CPT/HCPCS: 36415; 74018; 80053; 81001; 85025; 87088; 96361; 96374; 99284; J2405; J7030

== ENCOUNTER 2021-03-19 10:27 | Emergency (ER) | payer BC ==
[2021-03-19] MEDS ORDERED: METOCLOPRAMIDE 10 MG/2 ML VIAL ONE (11:09)
[2021-03-19 11:25] LABS: APPEARANCE,URINE Clear (CLEAR); BILIRUBIN,URINE Negative (NEGATIVE); COLOR,URINE Yellow (YELLOW); GLUCOSE, URINE (UA) Negative (NEGATIVE); KETONES,URINE Negative (NEGATIVE); LEUKOCYTE ESTERASE ,URINE Negative (NEGATIVE); NITRATE,URINE Negative (NEGATIVE); OCCULT BLOOD,URINE Negative (NEGATIVE); PH,URINE 7.5 (5.0-8.0); PROTEIN,URINE Negative (NEGATIVE)
== END 2021-03-19 14:52 | disposition home or self-care (01) ==
LOC: EDH 10:27
DX: R11.2 Nausea with vomiting, unspecified (principal); F41.9 Anxiety disorder, unspecified; E11.9 Type 2 diabetes mellitus without complications; I10 Essential (primary) hypertension; G43.909 Migraine, unspecified, not intractable, without status migrainosus; Z90.49 Acquired absence of other specified parts of digestive tract; Z90.710 Acquired absence of both cervix and uterus
CPT/HCPCS: 81003; 82948; 96372; 99284; J2765

== ENCOUNTER 2022-05-16 05:53 | Observation (INO) | payer BC, MEDICARE ==
[2022-05-15 12:53] LABS: BASOPHILS % (AUTO) 0.8 % (0.0-5.0); EOSINOPHILS % (AUTO) 1.7 % (0.0-8.0); HEMATOCRIT 39.7 % (36-48); LYMPHOCYTES % (AUTO) 24.3 % (21.0-51.0); MEAN CORPUSCULAR HEMOGLOBIN 31.4 pg (27.0-33.0); MEAN CORPUSCULAR HGB CONC 33.5 g/dL (32.0-36.0); MEAN CORPUSCULAR VOLUME 93.9 fL (79-99); MONOCYTES % (AUTO) 6.5 % (3.0-13.0); NEUTROPHILS % (AUTO) 66.4 % (40.0-77.0); PLATELET COUNT (AUTO) 249 K/uL (130-400); RED BLOOD CELL COUNT(AUTO) 4.23 MIL/uL (4.00-5.50); RED CELL DISTRIBUTION WIDTH 12.5 % (11.0-15.5); WHITE BLOOD COUNT (AUTO) 6.5 K/uL (4.8-10.8)
[2022-05-15 13:06] LABS: CREATININE 0.6 mg/dL (0.5-1.5)
[2022-05-15 13:28] LABS: APPEARANCE,URINE Clear (CLEAR); BILIRUBIN,URINE Negative (NEGATIVE); COLOR,URINE Yellow (YELLOW); GLUCOSE, URINE (UA) >=1000 mg/dL (NEGATIVE); KETONES,URINE Negative (NEGATIVE); LEUKOCYTE ESTERASE ,URINE Negative (NEGATIVE); NITRATE,URINE Negative (NEGATIVE); OCCULT BLOOD,URINE Negative (NEGATIVE); PROTEIN,URINE Negative (NEGATIVE); UROBILINOGEN,URINE 0.2 mg/dL (0.2-1.0)
[2022-05-15 13:32] LABS: INR 0.97 (0.85-1.15); PROTHROMBIN TIME 10.6 SEC (9.6-11.6)
[2022-05-15 13:34] LABS: PARTIAL THROMBOPLASTIN TIME 26.5 SEC (26.3-35.5)
[2022-05-15 13:54] LABS: BACTERIA,URINE Rare /HPF (None Seen); SQUAMOUS EPITHELIAL CELL,UR Few /HPF (0-2); WBC,URINE 0-1 /HPF (0-1)
[2022-05-15 15:34] VITALS: BP 156/83
[~2022-05-16] VITALS: Ht 165.1 cm; Wt 91.2 kg
[2022-05-16] VITALS (24 sets, daily range): BP systolic 115–157; BP diastolic 38–86
[~2022-05-16 05:53] MED LIST changes: +CARB15DR OP; +CELE200C PO; -CIPR500S5 PO; +CYCL30CA PO; -DOCU-116 PO; -GLIM4TAB36 PO; +INSU300I3 SQ; +LIFI1DRO OP; -LORA1TAB3 PO; +LOSA100T58 PO; -LOSA50TA64 PO; +METO-391 PO; -METO50TA18 PO; -METR-172 PO; +PREMC VG; -SENN8.6T32 PO; +SENNA TEA PO; +VALA500T42 PO; +WHEA1POW2 PO
[2022-05-16] MEDS ORDERED: 0.9%NACL 1000ML 1,000 ML IV ONE (07:04)
[2022-05-16] MEDS: CEFAZOLIN SODIUM 1 GM VIAL ONE ×2 (07:24→08:40)
[2022-05-16] MEDS ORDERED: SUCCINYLCHOLINE 200MG/10ML SYR ONE (08:27)
[2022-05-16] MEDS ORDERED: DEXAMETHASONE SOD PHOSPHATE 10MG/ML 1ML VIAL ONE (08:27)
[2022-05-16] MEDS ORDERED: LIDOCAINE PF 100MG/5ML (2%) SYRINGE 5ML ONE (08:27)
[2022-05-16] MEDS ORDERED: PROPOFOL 10 MG/ML 20ML VIAL IV ONE (08:27)
[2022-05-16] MEDS ORDERED: MIDAZOLAM HCL 1 MG/ML 2ML VIAL ONE (08:28)
[2022-05-16] MEDS ORDERED: GLYCOPYRROLATE 1 MG/5 ML SYRINGE ONE (08:28)
[2022-05-16] MEDS ORDERED: NEOSTIGMINE 5MG/5ML SYR IV ONE (08:28)
[2022-05-16] MEDS ORDERED: ROCURONIUM 10MG/1ML SYR 10 MG/ML ML ONE (08:28)
[2022-05-16] MEDS ORDERED: ONDANSETRON 4MG INJ ONE ×2 (08:28→10:17)
[2022-05-16] MEDS ORDERED: FENTANYL CITRATE PF 50 MCG/1 ML 2ML VIAL ONE (08:50)
[2022-05-16] MEDS ORDERED: EPHEDRINE SULFATE 50 MG/ML AMPULE ONE (09:28)
[2022-05-16] MEDS ORDERED: MEPERIDINE-PF 25 MG/ML SYG ONE ×2 (10:18→10:30)
[2022-05-16] MEDS ORDERED: SIMETHICONE 80 MG TAB.CHEW PO PRN (12:00)
[2022-05-16] MEDS ORDERED: ONDANSETRON 4MG INJ IVP PRN (12:00)
[2022-05-16] MEDS ORDERED: BISACODYL 10 MG SUPP.RECT RC PRN (12:00)
[2022-05-16] MEDS ORDERED: DOCUSATE SODIUM 100 MG CAP PO PRN (12:00)
[2022-05-16] MEDS ORDERED: PROMETHAZINE HCL 25 MG/ML 1ML AMPULE IM PRN (12:00)
[2022-05-16] MEDS: PROMETHAZINE HCL 25 MG/ML 1ML AMPULE IM PRN ×2 (13:03→18:33)
[2022-05-16] MEDS: MEPERIDINE-PF 75 MG/ML SYG IM PRN ×2 (13:06→18:33)
[2022-05-16] MEDS: LACTATED RINGERS 1000ML 1,000 ML IV SCH ×2 (14:05→20:55)
[2022-05-16] MEDS: INSULIN HUMULIN R 100 UNIT/ML 3ML SQ SCH ×2 (16:30→20:58)
[2022-05-17 04:20] VITALS: BP 133/65
[2022-05-17] MEDS ORDERED: HYDROCODONE/ACETAMINOPHEN 5/325 MG TAB PO PRN (04:30)
[2022-05-17] MEDS ORDERED: IBUPROFEN 800 MG TAB PO PRN (04:30)
[2022-05-17] MEDS ORDERED: ACETAMINOPHEN WITH CODEINE 1 TAB TAB PO PRN (04:30)
[2022-05-17] MEDS: ACETAMINOPHEN WITH CODEINE 1 TAB TAB PO PRN ×2 (04:39→11:34)
[2022-05-17] MEDS: INSULIN HUMULIN R 100 UNIT/ML 3ML SQ SCH ×2 (06:35→11:30)
[2022-05-17 06:44] LABS: HEMATOCRIT 36.4 % (36-48); MEAN CORPUSCULAR HGB CONC 33.8 g/dL (32.0-36.0); MEAN CORPUSCULAR VOLUME 94.8 fL (79-99); RED BLOOD CELL COUNT(AUTO) 3.84 MIL/uL (4.00-5.50); RED CELL DISTRIBUTION WIDTH 12.6 % (11.0-15.5); WHITE BLOOD COUNT (AUTO) 8.5 K/uL (4.8-10.8)
[2022-05-17 07:37] VITALS: BP 114/63
[2022-05-17] MEDS ORDERED: ACET-2079 PO (10:20)
[2022-05-17 11:21] VITALS: BP 133/68
[2022-05-17 16:13] VITALS: BP 130/68
== END 2022-05-17 17:20 | disposition home or self-care (01) ==
LOC: DAH 05:53 → DAHIP 05:54 → WSH 11:10
PROVIDERS: ADMIT Obstetrics & Gynecology; ATTEND Obstetrics & Gynecology
DX: N81.6 Rectocele (principal); Z20.822 Contact with and (suspected) exposure to COVID-19; N81.5 Vaginal enterocele; N81.10 Cystocele, unspecified; Z79.899 Other long term (current) drug therapy; Z98.890 Other specified postprocedural states
CPT/HCPCS: 36415; 80048; 81001; 82948; 85025; 85027; 85610; 85730; 86850; 86900; 86901; 87426; 93005; 96372; A4351; A4606; G0378; G0379; J0330; J0690; J1100; J2001; J2175; J2250; J2405; J2550; J2704; J2710; J3010; J3490; J7030; J7120

== ENCOUNTER 2022-08-31 09:29 | Emergency (ER) | payer MEDICARE ==
[~2022-08-31] VITALS: Ht 165.1 cm; Wt 90.7 kg
[~2022-08-31 09:29] MED LIST changes: +ACET-2079 PO
[2022-08-31] MEDS ORDERED: ORPHENADRINE CITRATE 30 MG/ML ML IM STA (09:45)
[2022-08-31] MEDS ORDERED: LIDOP TP (10:08)
[2022-08-31 11:01] VITALS: BP 133/64
== END 2022-08-31 11:03 | disposition home or self-care (01) ==
LOC: EDH 09:29
DX: S46.912A Strain of unspecified muscle, fascia and tendon at shoulder and upper arm level, left arm, initial encounter (principal); M19.90 Unspecified osteoarthritis, unspecified site; E11.9 Type 2 diabetes mellitus without complications; E78.00 Pure hypercholesterolemia, unspecified; I10 Essential (primary) hypertension; G43.909 Migraine, unspecified, not intractable, without status migrainosus; Z98.890 Other specified postprocedural states; Z90.49 Acquired absence of other specified parts of digestive tract; Z90.89 Acquired absence of other organs; Z79.899 Other long term (current) drug therapy; Z79.84 Long term (current) use of oral hypoglycemic drugs; Z88.8 Allergy status to other drugs, medicaments and biological substances; X58.XXXA Exposure to other specified factors, initial encounter; Y93.89 Activity, other specified; Y92.89 Other specified places as the place of occurrence of the external cause; Y99.8 Other external cause status
CPT/HCPCS: 99283; 96372; 93005; J2360

== ENCOUNTER 2022-10-08 12:51 | Emergency (ER) | payer MEDICARE ==
[~2022-10-08] VITALS: Ht 165.1 cm; Wt 90.7 kg
[~2022-10-08 12:51] MED LIST changes: +LIDOP TP
[2022-10-08 14:20] LABS: HEMATOCRIT 40.5 % (36-48); LYMPHOCYTES % (AUTO) 24.9 % (21.0-51.0); MEAN CORPUSCULAR HEMOGLOBIN 31.9 pg (27.0-33.0); MEAN CORPUSCULAR HGB CONC 34.3 g/dL (32.0-36.0); MEAN CORPUSCULAR VOLUME 92.9 fL (79-99); MONOCYTES % (AUTO) 6.6 % (3.0-13.0); NEUTROPHILS % (AUTO) 66.2 % (40.0-77.0); PLATELET COUNT (AUTO) 277 K/uL (130-400); RED BLOOD CELL COUNT(AUTO) 4.36 MIL/uL (4.00-5.50); RED CELL DISTRIBUTION WIDTH 11.7 % (11.0-15.5); WHITE BLOOD COUNT (AUTO) 7.3 K/uL (4.8-10.8)
[2022-10-08 14:32] LABS: CREATININE 0.6 mg/dL (0.5-1.5); POTASSIUM 3.8 mmol/L (3.5-5.1)
[2022-10-08 14:41] LABS: ALBUMIN 3.7 g/dL (3.5-5.0); TOTAL PROTEIN, SERUM 7.6 g/dL (6.0-8.3)
[2022-10-08 15:51] LABS: APPEARANCE,URINE CLEAR (CLEAR); BILIRUBIN,URINE NEGATIVE (NEGATIVE); COLOR,URINE LIGHT-YELLOW (YELLOW); GLUCOSE, URINE (UA) NEGATIVE (NEGATIVE); KETONES,URINE NEGATIVE (NEGATIVE); LEUKOCYTE ESTERASE ,URINE 250 Leu/uL (NEGATIVE); NITRATE,URINE NEGATIVE (NEGATIVE); OCCULT BLOOD,URINE NEGATIVE (NEGATIVE); PROTEIN,URINE NEGATIVE (NEGATIVE); UROBILINOGEN,URINE 0.2 mg/dL (0.2-1.0)
[2022-10-08 15:58] LABS: BACTERIA,URINE FEW /HPF (None Seen); MUCUS,URINE FEW LPF (None Seen); RBC,URINE 0-1 /HPF (0-1); SQUAMOUS EPITHELIAL CELL,UR FEW /HPF (0-2); WBC,URINE 26-50 /HPF (0-1)
[2022-10-08 16:15] VITALS: BP 162/67
== END 2022-10-08 16:16 | disposition home or self-care (01) ==
LOC: EDH 12:51
DX: M25.512 Pain in left shoulder (principal); M25.511 Pain in right shoulder; R07.9 Chest pain, unspecified; E11.9 Type 2 diabetes mellitus without complications; I10 Essential (primary) hypertension; K57.90 Diverticulosis of intestine, part unspecified, without perforation or abscess without bleeding; Z98.890 Other specified postprocedural states; Z79.899 Other long term (current) drug therapy
CPT/HCPCS: 36415; 71045; 80053; 81001; 84484; 85025; 87077; 87088; 87186; 93005

== ENCOUNTER 2022-12-13 14:05 | Emergency (ER) | payer MEDICARE ==
[~2022-12-13] VITALS: Ht 165.1 cm; Wt 90.7 kg
[2022-12-13 14:56] LABS: APPEARANCE,URINE CLEAR (CLEAR); BILIRUBIN,URINE NEGATIVE (NEGATIVE); COLOR,URINE COLORLESS (YELLOW); GLUCOSE, URINE (UA) NEGATIVE (NEGATIVE); KETONES,URINE NEGATIVE (NEGATIVE); LEUKOCYTE ESTERASE ,URINE NEGATIVE Leu/uL (NEGATIVE); NITRATE,URINE NEGATIVE (NEGATIVE); OCCULT BLOOD,URINE NEGATIVE (NEGATIVE); PH,URINE 6.5 (5.0-8.0); PROTEIN,URINE NEGATIVE (NEGATIVE); UROBILINOGEN,URINE 0.2 mg/dL (0.2-1.0)
[2022-12-13 14:59] LABS: MUCUS,URINE RARE LPF (None Seen); SQUAMOUS EPITHELIAL CELL,UR RARE /HPF (0-2); WBC,URINE 0-1 /HPF (0-1)
[2022-12-13 16:38] VITALS: BP 136/67
== END 2022-12-13 16:38 | disposition home or self-care (01) ==
LOC: EDH 14:05
DX: M25.551 Pain in right hip (principal); E11.9 Type 2 diabetes mellitus without complications; M19.90 Unspecified osteoarthritis, unspecified site; I10 Essential (primary) hypertension; F41.9 Anxiety disorder, unspecified; Z79.899 Other long term (current) drug therapy; Z88.8 Allergy status to other drugs, medicaments and biological substances
CPT/HCPCS: 74176; 81001

== ENCOUNTER 2023-02-01 14:37 | Emergency (ER) | payer MEDICARE ==
[~2023-02-01] VITALS: Ht 165.1 cm; Wt 88.5 kg
[2023-02-01 14:38] VITALS: BP 193/92
[2023-02-01 15:07] LABS: APPEARANCE,URINE CLEAR (CLEAR); BILIRUBIN,URINE NEGATIVE (NEGATIVE); COLOR,URINE COLORLESS (YELLOW); GLUCOSE, URINE (UA) NEGATIVE (NEGATIVE); KETONES,URINE NEGATIVE (NEGATIVE); LEUKOCYTE ESTERASE ,URINE NEGATIVE Leu/uL (NEGATIVE); NITRATE,URINE NEGATIVE (NEGATIVE); OCCULT BLOOD,URINE NEGATIVE (NEGATIVE); PH,URINE 6.5 (5.0-8.0); PROTEIN,URINE NEGATIVE (NEGATIVE); UROBILINOGEN,URINE 0.2 mg/dL (0.2-1.0)
[2023-02-01 15:08] LABS: BASOPHILS % (AUTO) 1.1 % (0.0-5.0); EOSINOPHILS % (AUTO) 1.7 % (0.0-8.0); HEMATOCRIT 41.1 % (36-48); MEAN CORPUSCULAR HGB CONC 33.8 g/dL (32.0-36.0); MEAN CORPUSCULAR VOLUME 94.5 fL (79-99); MONOCYTES % (AUTO) 6.2 % (3.0-13.0); NEUTROPHILS % (AUTO) 65.8 % (40.0-77.0); PLATELET COUNT (AUTO) 250 K/uL (130-400); RED BLOOD CELL COUNT(AUTO) 4.35 MIL/uL (4.00-5.50); RED CELL DISTRIBUTION WIDTH 12.2 % (11.0-15.5); WHITE BLOOD COUNT (AUTO) 6.5 K/uL (4.8-10.8)
[2023-02-01 15:08] LABS: MUCUS,URINE RARE LPF (None Seen); RBC,URINE 0-1 /HPF (0-1); SQUAMOUS EPITHELIAL CELL,UR RARE /HPF (0-2); WBC,URINE 0-1 /HPF (0-1)
[2023-02-01 15:18] LABS: CREATININE 0.7 mg/dL (0.5-1.5)
[2023-02-01 15:21] LABS: ALBUMIN 3.6 g/dL (3.5-5.0); TOTAL PROTEIN, SERUM 7.5 g/dL (6.0-8.3)
[2023-02-01] MEDS ORDERED: LACTULOSE 20 GM/30 ML UDCUP ONE (15:34)
[2023-02-01] MEDS ORDERED: MAG/ALUM/SIMETH 30 ML UDCUP ONE (15:34)
== END 2023-02-01 16:40 | disposition home or self-care (01) ==
LOC: EDH 14:37
DX: K59.00 Constipation, unspecified (principal); I10 Essential (primary) hypertension; E11.9 Type 2 diabetes mellitus without complications; Z79.1 Long term (current) use of non-steroidal anti-inflammatories (NSAID); Z79.4 Long term (current) use of insulin; Z79.84 Long term (current) use of oral hypoglycemic drugs; Z79.899 Other long term (current) drug therapy; Z88.8 Allergy status to other drugs, medicaments and biological substances
CPT/HCPCS: 36415; 80053; 81001; 85025

== ENCOUNTER 2023-02-20 01:45 | Emergency (ER) | payer MEDICARE ==
[~2023-02-20] VITALS: Ht 165.1 cm; Wt 87.1 kg
[2023-02-20 02:03] VITALS: BP 128/74
[2023-02-20 02:35] LABS: BASOPHILS % (AUTO) 1.2 % (0.0-5.0); EOSINOPHILS % (AUTO) 3.5 % (0.0-8.0); HEMATOCRIT 38.1 % (36-48); LYMPHOCYTES % (AUTO) 31.2 % (21.0-51.0); MEAN CORPUSCULAR HEMOGLOBIN 31.6 pg (27.0-33.0); MEAN CORPUSCULAR HGB CONC 33.6 g/dL (32.0-36.0); MEAN CORPUSCULAR VOLUME 94.1 fL (79-99); MONOCYTES % (AUTO) 11.2 % (3.0-13.0); NEUTROPHILS % (AUTO) 52.7 % (40.0-77.0); PLATELET COUNT (AUTO) 232 K/uL (130-400); RED BLOOD CELL COUNT(AUTO) 4.05 MIL/uL (4.00-5.50); RED CELL DISTRIBUTION WIDTH 12.2 % (11.0-15.5); WHITE BLOOD COUNT (AUTO) 6.6 K/uL (4.8-10.8)
[2023-02-20 02:45] LABS: CREATININE 0.6 mg/dL (0.5-1.5); POTASSIUM 3.8 mmol/L (3.5-5.1)
[2023-02-20 02:52] LABS: ALBUMIN 3.2 g/dL (3.5-5.0); TOTAL PROTEIN, SERUM 6.5 g/dL (6.0-8.3)
[2023-02-20] MEDS ORDERED: ALBU90AE2 IH (03:00)
[2023-02-20] MEDS ORDERED: PRED20TA3 PO (03:00)
[2023-02-20 03:01] LABS: B-TYPE NATRIURETIC PEPTIDE 49 pg/mL (0-100)
== END 2023-02-20 03:25 | disposition home or self-care (01) ==
LOC: EDH 01:45
DX: B34.9 Viral infection, unspecified (principal); J02.8 Acute pharyngitis due to other specified organisms; I10 Essential (primary) hypertension; E11.9 Type 2 diabetes mellitus without complications; M19.90 Unspecified osteoarthritis, unspecified site; Z20.822 Contact with and (suspected) exposure to COVID-19; Z88.8 Allergy status to other drugs, medicaments and biological substances; Z79.899 Other long term (current) drug therapy
CPT/HCPCS: 99284; 71045; 87635; 84484; 80053; 83880; 85025; 85378; 87880; 87804 ×2; 36415; C9803

== ENCOUNTER 2023-03-22 09:01 | Emergency (ER) | payer MEDICARE ==
[~2023-03-22] VITALS: Ht 165.1 cm; Wt 86.2 kg
[~2023-03-22 09:01] MED LIST changes: +ALBU90AE2 IH; -LOSA100T58 PO; +LOSA100T59 PO; +PRED20TA3 PO
[2023-03-22 09:02] VITALS: BP 127/61
[2023-03-22 09:38] LABS: APPEARANCE,URINE CLEAR (CLEAR); BILIRUBIN,URINE NEGATIVE (NEGATIVE); COLOR,URINE LIGHT-YELLOW (YELLOW); GLUCOSE, URINE (UA) 70 mg/dL (NEGATIVE); KETONES,URINE NEGATIVE (NEGATIVE); LEUKOCYTE ESTERASE ,URINE NEGATIVE Leu/uL (NEGATIVE); NITRATE,URINE NEGATIVE (NEGATIVE); OCCULT BLOOD,URINE NEGATIVE (NEGATIVE); PH,URINE 5.5 (5.0-8.0); PROTEIN,URINE NEGATIVE (NEGATIVE); UROBILINOGEN,URINE 0.2 mg/dL (0.2-1.0)
[2023-03-22 09:48] LABS: BASOPHILS % (AUTO) 1.2 % (0.0-5.0); EOSINOPHILS % (AUTO) 1.7 % (0.0-8.0); HEMATOCRIT 38.5 % (36-48); LYMPHOCYTES % (AUTO) 21.4 % (21.0-51.0); MEAN CORPUSCULAR HEMOGLOBIN 31.8 pg (27.0-33.0); MEAN CORPUSCULAR HGB CONC 33.2 g/dL (32.0-36.0); MEAN CORPUSCULAR VOLUME 95.5 fL (79-99); MONOCYTES % (AUTO) 8.5 % (3.0-13.0); PLATELET COUNT (AUTO) 256 K/uL (130-400); RED BLOOD CELL COUNT(AUTO) 4.03 MIL/uL (4.00-5.50); RED CELL DISTRIBUTION WIDTH 12.2 % (11.0-15.5); WHITE BLOOD COUNT (AUTO) 5.8 K/uL (4.8-10.8)
[2023-03-22] MEDS ORDERED: ONDANSETRON 4MG INJ IVP ONE (10:00)
[2023-03-22 10:02] LABS: ALBUMIN 3.3 g/dL (3.5-5.0); CREATININE 0.7 mg/dL (0.5-1.5); POTASSIUM 3.6 mmol/L (3.5-5.1); TOTAL PROTEIN, SERUM 6.8 g/dL (6.0-8.3)
[2023-03-22 10:16] LABS: MUCUS,URINE RARE LPF (None Seen); RBC,URINE 0-1 /HPF (0-1); SQUAMOUS EPITHELIAL CELL,UR FEW /HPF (0-2); WBC,URINE 0-1 /HPF (0-1)
[2023-03-22] MEDS ORDERED: LACT10SO5 PO (14:34)
[2023-03-22] MEDS ORDERED: ONDA4TAB10 PO (14:34)
== END 2023-03-22 14:46 | disposition home or self-care (01) ==
LOC: EDH 09:01
DX: K59.00 Constipation, unspecified (principal); M19.90 Unspecified osteoarthritis, unspecified site; E11.9 Type 2 diabetes mellitus without complications; Z90.710 Acquired absence of both cervix and uterus; Z79.1 Long term (current) use of non-steroidal anti-inflammatories (NSAID); Z79.52 Long term (current) use of systemic steroids; Z88.8 Allergy status to other drugs, medicaments and biological substances
CPT/HCPCS: 99285; 74176; 96374; 84484; 80053; 83690; 85025; 81001; 36415; 93005; J2405

== ENCOUNTER 2023-03-28 05:53 | Emergency (ER) | payer MEDICARE ==
[~2023-03-28] VITALS: Ht 165.1 cm; Wt 86.2 kg
[~2023-03-28 05:53] MED LIST changes: +LACT10SO5 PO; +ONDA4TAB10 PO
[2023-03-28 06:26] LABS: BASOPHILS % (AUTO) 0.7 % (0.0-5.0); EOSINOPHILS % (AUTO) 0.9 % (0.0-8.0); HEMATOCRIT 41.1 % (36-48); LYMPHOCYTES % (AUTO) 19.2 % (21.0-51.0); MEAN CORPUSCULAR HEMOGLOBIN 31.6 pg (27.0-33.0); MEAN CORPUSCULAR HGB CONC 33.6 g/dL (32.0-36.0); MEAN CORPUSCULAR VOLUME 94.1 fL (79-99); MONOCYTES % (AUTO) 8.5 % (3.0-13.0); NEUTROPHILS % (AUTO) 70.4 % (40.0-77.0); PLATELET COUNT (AUTO) 284 K/uL (130-400); RED BLOOD CELL COUNT(AUTO) 4.37 MIL/uL (4.00-5.50); RED CELL DISTRIBUTION WIDTH 12.2 % (11.0-15.5); WHITE BLOOD COUNT (AUTO) 9.5 K/uL (4.8-10.8)
[2023-03-28] MEDS ORDERED: PEG 3350/NA SULF,BICARB,CL/KCL 4000 ML SOLN PO ONE (06:30)
[2023-03-28 06:41] LABS: ALBUMIN 3.4 g/dL (3.5-5.0); CREATININE 0.6 mg/dL (0.5-1.5); POTASSIUM 3.8 mmol/L (3.5-5.1); TOTAL PROTEIN, SERUM 7.2 g/dL (6.0-8.3)
[2023-03-28 08:44] VITALS: BP 144/74
[2023-03-28] MEDS ORDERED: LACT10SO9 PO (08:56)
== END 2023-03-28 08:58 | disposition home or self-care (01) ==
LOC: EDH 05:53
DX: K59.00 Constipation, unspecified (principal); M19.90 Unspecified osteoarthritis, unspecified site; E11.9 Type 2 diabetes mellitus without complications; Z79.899 Other long term (current) drug therapy; Z79.1 Long term (current) use of non-steroidal anti-inflammatories (NSAID); Z79.52 Long term (current) use of systemic steroids; Z88.8 Allergy status to other drugs, medicaments and biological substances; Z65.3 Problems related to other legal circumstances
CPT/HCPCS: 36415; 80053; 83605; 83690; 85025

== ENCOUNTER 2023-04-20 08:37 | Emergency (ER) | payer MEDICARE ==
[~2023-04-20] VITALS: Ht 165.1 cm; Wt 83.9 kg
[~2023-04-20 08:37] MED LIST changes: +LACT10SO9 PO
[2023-04-20] MEDS ORDERED: CYCL10TA16 PO (09:19)
[2023-04-20] MEDS ORDERED: NAPR-1180 PO (09:19)
[2023-04-20] MEDS ORDERED: DOCU-116 PO (09:19)
[2023-04-20 09:26] VITALS: BP 149/75
[2023-04-20] MEDS ORDERED: KETOROLAC 60 MG VIAL (30MG/ML) IM SCH (09:30)
[2023-04-20] MEDS ORDERED: KETOROLAC 30MG VIAL (30MG/ML) ONE (09:40)
== END 2023-04-20 09:56 | disposition home or self-care (01) ==
LOC: EDH 08:37
DX: M54.41 Lumbago with sciatica, right side (principal); M19.90 Unspecified osteoarthritis, unspecified site; K59.00 Constipation, unspecified; E11.9 Type 2 diabetes mellitus without complications; Z79.1 Long term (current) use of non-steroidal anti-inflammatories (NSAID); Z79.52 Long term (current) use of systemic steroids
CPT/HCPCS: 99283; 96372; J1885

== ENCOUNTER 2023-05-13 10:49 | Emergency (ER) | payer MEDICARE ==
[~2023-05-13] VITALS: Ht 165.1 cm; Wt 83.9 kg
[~2023-05-13 10:49] MED LIST changes: +CYCL10TA16 PO; +DOCU-116 PO; +NAPR-1180 PO
[2023-05-13 15:14] VITALS: BP 138/70
[2023-05-13 15:19] LABS: APPEARANCE,URINE CLEAR (CLEAR); BILIRUBIN,URINE NEGATIVE (NEGATIVE); COLOR,URINE YELLOW (YELLOW); GLUCOSE, URINE (UA) NEGATIVE (NEGATIVE); KETONES,URINE NEGATIVE (NEGATIVE); LEUKOCYTE ESTERASE ,URINE NEGATIVE Leu/uL (NEGATIVE); NITRATE,URINE NEGATIVE (NEGATIVE); OCCULT BLOOD,URINE NEGATIVE (NEGATIVE); PROTEIN,URINE NEGATIVE (NEGATIVE); UROBILINOGEN,URINE 0.2 mg/dL (0.2-1.0)
[2023-05-13] MEDS ORDERED: KETOROLAC 15MG/ML VIAL (15MG/ML) IM ONE (15:30)
[2023-05-13] MEDS ORDERED: GABA-529 PO (15:50)
== END 2023-05-13 16:28 | disposition home or self-care (01) ==
LOC: EDH 10:49
DX: M54.31 Sciatica, right side (principal); E11.36 Type 2 diabetes mellitus with diabetic cataract; M19.90 Unspecified osteoarthritis, unspecified site; Z79.84 Long term (current) use of oral hypoglycemic drugs; Z79.899 Other long term (current) drug therapy; Z90.89 Acquired absence of other organs; Z90.710 Acquired absence of both cervix and uterus; Z98.890 Other specified postprocedural states
CPT/HCPCS: 99283; 81003; 96372; J1885

== ENCOUNTER 2023-06-11 02:02 | Observation (INO) | payer MEDICARE ==
[~2023-06-11] VITALS: Ht 165.1 cm; Wt 83.9 kg
[2023-06-11] VITALS (7 sets, daily range): BP systolic 109–142; BP diastolic 52–77; PULSE 62–87; RESP 18; O2SAT 99
[~2023-06-11 02:02] MED LIST changes: +GABA-529 PO
[2023-06-11] MEDS ORDERED: LORAZEPAM 1 MG TABLET ONE (02:14)
[2023-06-11] MEDS ORDERED: METOPROLOL SUCCINATE 50 MG TAB.SR.24H PO ONE (11:30)
[2023-06-11] MEDS ORDERED: ENOXAPARIN SODIUM 80 MG/0.8 ML SQ ONE (12:00)
[2023-06-11] MEDS ORDERED: POTASSIUM CHLORIDE 20MEQ/100ML 100 ML IV PRN (12:00)
[2023-06-11] MEDS ORDERED: POTASSIUM CHLORIDE 10% ELIXIR 20 MEQ/15 ML UDCUP PO PRN (12:00)
[2023-06-11] MEDS ORDERED: MAGNESIUM 2GM PREMIX 50ML 50 ML IV PRN (12:00)
[2023-06-11] MEDS ORDERED: KCL 20 MEQ ERTAB PO PRN (12:00)
[2023-06-11] MEDS ORDERED: DEXTROSE 50%-WATER 50 ML DISP.SYRIN IV PRN (13:00)
[2023-06-11] MEDS ORDERED: GLUCAGON 1MG KIT 1 MG ML IM PRN (13:00)
[2023-06-11 14:13] LABS: APPEARANCE,URINE CLEAR (CLEAR); BILIRUBIN,URINE NEGATIVE (NEGATIVE); COLOR,URINE YELLOW (YELLOW); GLUCOSE, URINE (UA) NEGATIVE (NEGATIVE); INFLUENZA TYPE A NEGATIVE FOR TYPE A (NEGATIVE); INFLUENZA TYPE B NEGATIVE FOR TYPE B (NEGATIVE); KETONES,URINE NEGATIVE (NEGATIVE); LEUKOCYTE ESTERASE ,URINE NEGATIVE Leu/uL (NEGATIVE); NITRATE,URINE NEGATIVE (NEGATIVE); OCCULT BLOOD,URINE NEGATIVE (NEGATIVE); PH,URINE 7.5 (5.0-8.0); PROTEIN,URINE NEGATIVE (NEGATIVE); UROBILINOGEN,URINE 0.2 mg/dL (0.2-1.0)
[2023-06-11 14:14] LABS: ADD UA MICROSCOPIC NO; SARS-CoV-2, RNA, NAAT NEGATIVE SARS CoV-2 (NEGATIVE)
[2023-06-11 15:10] LABS: ALBUMIN 3.3 g/dL (3.5-5.0); BILIRUBIN,TOTAL 0.4 mg/dL (0.2-1.0); CREATININE 0.7 mg/dL (0.5-1.5); POTASSIUM 3.7 mmol/L (3.5-5.1); TOTAL PROTEIN, SERUM 7.4 g/dL (6.0-8.3)
[2023-06-11 15:54] LABS: BASOPHILS # (AUTO) 0.07 K/uL (0.00-0.20); BASOPHILS % (AUTO) 0.9 % (0.0-5.0); EOSINOPHILS # (AUTO) 0.15 K/uL (0.00-0.70); EOSINOPHILS % (AUTO) 1.9 % (0.0-8.0); HEMATOCRIT 39.9 % (36-48); IMMATURE GRANULOCYTE ABSOLUTE 0.02 K/uL (0-1); LYMPHOCYTES # (AUTO) 2.1 K/uL (1.0-4.8); LYMPHOCYTES % (AUTO) 26.6 % (21.0-51.0); MEAN CORPUSCULAR HEMOGLOBIN 31.7 pg (27.0-33.0); MEAN CORPUSCULAR HGB CONC 33.6 g/dL (32.0-36.0); MEAN CORPUSCULAR VOLUME 94.3 fL (79-99); MONOCYTES # (AUTO) 0.7 K/uL (0.1-1.0); MONOCYTES % (AUTO) 8.4 % (3.0-13.0); PLATELET COUNT (AUTO) 262 K/uL (130-400); RED BLOOD CELL COUNT(AUTO) 4.23 MIL/uL (4.00-5.50); RED CELL DISTRIBUTION WIDTH 12.2 % (11.0-15.5)
[2023-06-11 16:23] LABS: ALANINE AMINOTRANSFERASE 17 U/L (12-78); ALBUMIN 3.2 g/dL (3.5-5.0); ASPARTATE AMINOTRANSFERASE 16 U/L (10-37); BILIRUBIN,TOTAL 0.4 mg/dL (0.2-1.0); CARBON DIOXIDE 29 mmol/L (21-32); CHLORIDE 105 mmol/L (101-111); CREATININE 0.7 mg/dL (0.5-1.5); GLOMERULAR FILTR. RATE CALC 95 mL/min (>90); GLUCOSE,RANDOM 134 mg/dL (70-105); POTASSIUM 3.6 mmol/L (3.5-5.1); SODIUM SERUM 141 mmol/L (136-145); TOTAL PROTEIN, SERUM 7.1 g/dL (6.0-8.3); UREA NITROGEN, BLOOD 14 mg/dL (7-18)
[2023-06-11 16:25] LABS: B-TYPE NATRIURETIC PEPTIDE 116 pg/mL (0-100)
[2023-06-11 16:27] LABS: CRP QUANTITATIVE < 2.00 mg/L (0.00-9.0)
[2023-06-11 16:29] LABS: BASOPHILS # (AUTO) 0.09 K/uL (0.00-0.20); BASOPHILS % (AUTO) 1.1 % (0.0-5.0); EOSINOPHILS # (AUTO) 0.23 K/uL (0.00-0.70); EOSINOPHILS % (AUTO) 2.9 % (0.0-8.0); IMMATURE GRANULOCYTE ABSOLUTE 0.01 K/uL (0-1); LYMPHOCYTES # (AUTO) 2.6 K/uL (1.0-4.8); LYMPHOCYTES % (AUTO) 32.3 % (21.0-51.0); MEAN CORPUSCULAR HEMOGLOBIN 31.9 pg (27.0-33.0); MEAN CORPUSCULAR HGB CONC 32.9 g/dL (32.0-36.0); MONOCYTES # (AUTO) 0.6 K/uL (0.1-1.0); MONOCYTES % (AUTO) 7.5 % (3.0-13.0); NEUTROPHILS # (AUTO) 4.5 K/uL (1.8-7.7); NEUTROPHILS % (AUTO) 56.1 % (40.0-77.0); PLATELET COUNT (AUTO) 280 K/uL (130-400); RED BLOOD CELL COUNT(AUTO) 4.33 MIL/uL (4.00-5.50); RED CELL DISTRIBUTION WIDTH 12.7 % (11.0-15.5)
[2023-06-11] MEDS: INSULIN HUMULIN R 100 UNIT/ML 3ML SQ SCH ×2 (16:30→20:25)
[2023-06-11 17:28] LABS: ERYTHROCYTE SEDIMENTATION RATE 43 MM/HR (0-30)
[2023-06-11] MEDS ORDERED: RIVAROXABAN 20 MG TABLET PO SCH (19:00)
[2023-06-12] VITALS (8 sets, daily range): BP systolic 120–150; BP diastolic 59–73; PULSE 57–72; RESP 18–20; O2SAT 98
[2023-06-12] MEDS ORDERED: ENOXAPARIN SODIUM 80 MG/0.8 ML SQ SCH (01:30)
[2023-06-12 03:43] LABS: HEMATOCRIT 35.9 % (36-48); MEAN CORPUSCULAR HGB CONC 33.1 g/dL (32.0-36.0); MEAN CORPUSCULAR VOLUME 96.5 fL (79-99); RED BLOOD CELL COUNT(AUTO) 3.72 MIL/uL (4.00-5.50); RED CELL DISTRIBUTION WIDTH 12.3 % (11.0-15.5); WHITE BLOOD COUNT (AUTO) 6.5 K/uL (4.8-10.8)
[2023-06-12 03:58] LABS: HEMOGLOBIN A1C 5.9 % (4.0-6.0)
[2023-06-12 03:59] LABS: INR 1.22 (0.85-1.15)
[2023-06-12 04:01] LABS: PARTIAL THROMBOPLASTIN TIME 37.9 SEC (26.3-35.5)
[2023-06-12] MEDS: INSULIN HUMULIN R 100 UNIT/ML 3ML SQ SCH ×4 (06:28→21:00)
[2023-06-12] MEDS ORDERED: REGADENOSON 0.4 MG/5 ML PF SYG IVP SCH (07:00)
[2023-06-12 07:56] LABS: CREATININE 0.8 mg/dL (0.5-1.5); POTASSIUM 3.8 mmol/L (3.5-5.1)
[2023-06-12] MEDS ORDERED: RIVA20TA PO (11:14)
[2023-06-12] MEDS: METOPROLOL SUCCINATE 50 MG TAB.SR.24H PO SCH (16:38)
[2023-06-12] MEDS ORDERED: RIVAROXABAN 20 MG TABLET PO SCH (17:00)
[2023-06-12] MEDS ORDERED: LACTULOSE 20 GM/30 ML UDCUP PO PRN (21:30)
[2023-06-13 03:23] VITALS: BP 140/76; PULSE 71; RESP 18
[2023-06-13] MEDS: INSULIN HUMULIN R 100 UNIT/ML 3ML SQ SCH (06:31)
[2023-06-13 07:00] VITALS: BP 133/63; PULSE 64; RESP 20
[2023-06-13] MEDS: METOPROLOL SUCCINATE 50 MG TAB.SR.24H PO SCH (08:58)
[2023-06-13 09:00] VITALS: O2SAT 99
== END 2023-06-13 10:30 | disposition home or self-care (01) ==
LOC: EDH 02:02 → INTOOBSV 03:15 → 2AH 03:15 → EDH 11:11
PROVIDERS: ADMIT Hospitalist; ATTEND Hospitalist
DX: I48.19 Other persistent atrial fibrillation (principal); Z20.822 Contact with and (suspected) exposure to COVID-19; F41.0 Panic disorder [episodic paroxysmal anxiety]; I49.3 Ventricular premature depolarization; I10 Essential (primary) hypertension; E11.9 Type 2 diabetes mellitus without complications; B00.89 Other herpesviral infection; M19.90 Unspecified osteoarthritis, unspecified site; E78.5 Hyperlipidemia, unspecified; K59.09 Other constipation; Z86.16 Personal history of COVID-19; Z79.899 Other long term (current) drug therapy
CPT/HCPCS: 96372; 99285; 84443; 83735 ×3; 84484; 80053 ×2; 83880; 85025 ×2; 85651; 87804 ×2; 82948 ×9; 86140; 81003; 36415 ×2; 87635; 71045; 93005; 83036; 80048; 85027; 85610; 85730; 93017; 78452; 93306; 93356; J1650; G0378 ×20; J2785; J1815; A9500 ×2; 96374

== ENCOUNTER 2023-07-09 03:36 | Emergency (ER) | payer MEDICARE ==
[~2023-07-09] VITALS: Ht 165.1 cm; Wt 83.9 kg
[~2023-07-09 03:36] MED LIST changes: -ACET-2079 PO; -ALBU90AE2 IH; -CYCL30CA PO; -LACT10SO5 PO; -LACT10SO9 PO; -LIDOP TP; -LIFI1DRO OP; -NAPR-1180 PO; -ONDA4TAB10 PO; -PRED20TA3 PO; +RIVA20TA PO
[2023-07-09 04:09] LABS: BASOPHILS # (AUTO) 0.06 K/uL (0.00-0.20); BASOPHILS % (AUTO) 0.8 % (0.0-5.0); EOSINOPHILS # (AUTO) 0.15 K/uL (0.00-0.70); EOSINOPHILS % (AUTO) 2.1 % (0.0-8.0); HEMATOCRIT 39.5 % (36-48); IMMATURE GRANULOCYTE ABSOLUTE 0.01 K/uL (0-1); LYMPHOCYTES # (AUTO) 2.1 K/uL (1.0-4.8); LYMPHOCYTES % (AUTO) 28.7 % (21.0-51.0); MEAN CORPUSCULAR HGB CONC 33.7 g/dL (32.0-36.0); MEAN CORPUSCULAR VOLUME 95.2 fL (79-99); MONOCYTES # (AUTO) 0.6 K/uL (0.1-1.0); NEUTROPHILS # (AUTO) 4.3 K/uL (1.8-7.7); NEUTROPHILS % (AUTO) 60.3 % (40.0-77.0); PLATELET COUNT (AUTO) 265 K/uL (130-400); RED BLOOD CELL COUNT(AUTO) 4.15 MIL/uL (4.00-5.50); RED CELL DISTRIBUTION WIDTH 12.1 % (11.0-15.5); WHITE BLOOD COUNT (AUTO) 7.2 K/uL (4.8-10.8)
[2023-07-09 04:10] LABS: APPEARANCE,URINE CLEAR (CLEAR); BILIRUBIN,URINE NEGATIVE (NEGATIVE); COLOR,URINE LIGHT-YELLOW (YELLOW); GLUCOSE, URINE (UA) NEGATIVE (NEGATIVE); KETONES,URINE NEGATIVE (NEGATIVE); LEUKOCYTE ESTERASE ,URINE 500 Leu/uL (NEGATIVE); NITRATE,URINE 1+ (NEGATIVE); OCCULT BLOOD,URINE NEGATIVE (NEGATIVE); PROTEIN,URINE NEGATIVE (NEGATIVE); UROBILINOGEN,URINE 0.2 mg/dL (0.2-1.0)
[2023-07-09 04:11] LABS: ADD UA MICROSCOPIC YES
[2023-07-09 04:14] LABS: BACTERIA,URINE RARE /HPF (None Seen); MUCUS,URINE RARE LPF (None Seen); RBC,URINE 0-1 /HPF (0-1); SQUAMOUS EPITHELIAL CELL,UR RARE /HPF (0-2)
[2023-07-09 04:22] LABS: CREATININE 0.6 mg/dL (0.5-1.5); POTASSIUM 3.7 mmol/L (3.5-5.1)
[2023-07-09 04:24] LABS: ALBUMIN 3.2 g/dL (3.5-5.0); BILIRUBIN,TOTAL 0.6 mg/dL (0.2-1.0)
[2023-07-09] MEDS ORDERED: METOCLOPRAMIDE 10 MG/2 ML VIAL IVP ONE (04:30)
[2023-07-09] MEDS ORDERED: LACTATED RINGERS 1000ML 1,000 ML IV ONE (04:30)
[2023-07-09] MEDS ORDERED: 0.9%NACL 1000ML 1,000 ML IV ONE (05:30)
[2023-07-09] MEDS ORDERED: CEFTRIAXONE 2GM VIAL IVPB ONE (05:30)
[2023-07-09] MEDS ORDERED: MORPHINE 4 MG SYG IM ONE (06:00)
[2023-07-09] MEDS ORDERED: ONDANSETRON 4MG INJ IVP ONE (06:00)
[2023-07-09] MEDS ORDERED: METRONIDAZOLE 500MG/100ML BAG 100 ML IVPB SCH (06:00)
[2023-07-09] MEDS ORDERED: MORPHINE 4 MG SYG IVP ONE (06:30)
[2023-07-09] MEDS ORDERED: METR-172 PO (06:39)
[2023-07-09] MEDS ORDERED: LEVO-70 PO (06:39)
[2023-07-09] MEDS ORDERED: CEPH500B PO (06:39)
[2023-07-09 06:45] VITALS: BP 138/65; PULSE 58; RESP 16; O2SAT 99
[2023-07-09] MEDS ORDERED: LEVOFLOXACIN 500 MG TABLET PO SCH (09:00)
== END 2023-07-09 08:05 | disposition home or self-care (01) ==
LOC: EDH 03:36
DX: K57.32 Diverticulitis of large intestine without perforation or abscess without bleeding (principal); N39.0 Urinary tract infection, site not specified; I10 Essential (primary) hypertension; M19.90 Unspecified osteoarthritis, unspecified site; Z79.1 Long term (current) use of non-steroidal anti-inflammatories (NSAID); Z79.624 Long term (current) use of inhibitors of nucleotide synthesis; Z79.899 Other long term (current) drug therapy; E11.9 Type 2 diabetes mellitus without complications
CPT/HCPCS: 99285; 74176; 96365; 96375; 99281; 96361; 80053; 83690; 85025; 87077; 87088; 87186; 81001; 36415; J7120; J7030; J0696; J2405; J2270; J2765; J3490

== ENCOUNTER 2023-07-09 09:53 | Emergency (ER) | payer MEDICARE ==
[~2023-07-09] VITALS: Ht 165.1 cm; Wt 83.9 kg
[~2023-07-09 09:53] MED LIST changes: +CEPH500B PO; +LEVO-70 PO; +METR-172 PO
[2023-07-09 09:54] VITALS: BP 179/79; PULSE 67; RESP 18
== END 2023-07-09 11:33 | disposition home or self-care (01) ==
LOC: EDH 09:53
DX: N28.1 Cyst of kidney, acquired (principal); Q63.1 Lobulated, fused and horseshoe kidney; K57.32 Diverticulitis of large intestine without perforation or abscess without bleeding; I48.91 Unspecified atrial fibrillation; E11.9 Type 2 diabetes mellitus without complications; M19.90 Unspecified osteoarthritis, unspecified site; Z88.8 Allergy status to other drugs, medicaments and biological substances; Z79.84 Long term (current) use of oral hypoglycemic drugs; Z79.899 Other long term (current) drug therapy

== ENCOUNTER 2024-01-21 06:35 | Emergency (ER) | payer MEDICARE ==
[~2024-01-21] VITALS: Ht 165.1 cm; Wt 83.9 kg
[~2024-01-21 06:35] MED LIST changes: +CELE-384 PO; -CELE200C PO
[2024-01-21 07:24] LABS: APPEARANCE,URINE CLEAR (CLEAR); BILIRUBIN,URINE NEGATIVE (NEGATIVE); COLOR,URINE LIGHT-YELLOW (YELLOW); GLUCOSE, URINE (UA) NEGATIVE (NEGATIVE); KETONES,URINE NEGATIVE (NEGATIVE); LEUKOCYTE ESTERASE ,URINE NEGATIVE Leu/uL (NEGATIVE); NITRATE,URINE NEGATIVE (NEGATIVE); OCCULT BLOOD,URINE NEGATIVE (NEGATIVE); PROTEIN,URINE NEGATIVE (NEGATIVE); UROBILINOGEN,URINE 0.2 mg/dL (0.2-1.0)
[2024-01-21 07:27] LABS: ADD UA MICROSCOPIC NO
[2024-01-21 07:53] LABS: BASOPHILS # (AUTO) 0.05 K/uL (0.00-0.20); BASOPHILS % (AUTO) 0.8 % (0.0-5.0); EOSINOPHILS # (AUTO) 0.14 K/uL (0.00-0.70); EOSINOPHILS % (AUTO) 2.2 % (0.0-8.0); IMMATURE GRANULOCYTE ABSOLUTE 0.01 K/uL (0-1); LYMPHOCYTES # (AUTO) 1.5 K/uL (1.0-4.8); LYMPHOCYTES % (AUTO) 23.5 % (21.0-51.0); MEAN CORPUSCULAR HEMOGLOBIN 31.6 pg (27.0-33.0); MEAN CORPUSCULAR HGB CONC 33.9 g/dL (32.0-36.0); MEAN CORPUSCULAR VOLUME 93.3 fL (79-99); MONOCYTES # (AUTO) 0.6 K/uL (0.1-1.0); MONOCYTES % (AUTO) 9.6 % (3.0-13.0); NEUTROPHILS # (AUTO) 4.1 K/uL (1.8-7.7); NEUTROPHILS % (AUTO) 63.7 % (40.0-77.0); PLATELET COUNT (AUTO) 225 K/uL (130-400); RED BLOOD CELL COUNT(AUTO) 3.86 MIL/uL (4.00-5.50); RED CELL DISTRIBUTION WIDTH 11.7 % (11.0-15.5); WHITE BLOOD COUNT (AUTO) 6.5 K/uL (4.8-10.8)
[2024-01-21 08:11] LABS: ALBUMIN 2.9 g/dL (3.5-5.0); BILIRUBIN,TOTAL 0.5 mg/dL (0.2-1.0); CREATININE 0.6 mg/dL (0.5-1.5); POTASSIUM 3.9 mmol/L (3.5-5.1); TOTAL PROTEIN, SERUM 6.5 g/dL (6.0-8.3)
[2024-01-21] MEDS ORDERED: NAPR-1192 PO (08:52)
[2024-01-21 09:35] VITALS: BP 138/61; PULSE 64; RESP 18; O2SAT 100
[2024-01-21] MEDS: 0.9%NACL 1000ML 1,000 ML IV ONE (09:37)
[2024-01-21] MEDS: METOCLOPRAMIDE 10 MG/2 ML VIAL IVP ONE (09:37)
[2024-01-21] MEDS ORDERED: METO-296 PO (09:57)
[2024-01-21] MEDS: ALBUMIN (HUMAN) 25% 200 ML IV ONE (10:18)
== END 2024-01-21 10:30 | disposition home or self-care (01) ==
LOC: EDH 06:35
DX: K43.9 Ventral hernia without obstruction or gangrene (principal); K57.90 Diverticulosis of intestine, part unspecified, without perforation or abscess without bleeding; I10 Essential (primary) hypertension; E11.9 Type 2 diabetes mellitus without complications; I48.91 Unspecified atrial fibrillation; M19.90 Unspecified osteoarthritis, unspecified site; Q63.1 Lobulated, fused and horseshoe kidney; Z79.84 Long term (current) use of oral hypoglycemic drugs; Z79.899 Other long term (current) drug therapy; Z90.49 Acquired absence of other specified parts of digestive tract; Z90.710 Acquired absence of both cervix and uterus; Z88.8 Allergy status to other drugs, medicaments and biological substances
CPT/HCPCS: 99285; 74176; 96374; 84484; 80053; 83690; 85025; 81003; 36415; 74018; 93005; P9046; J7030; J2765

== ENCOUNTER → 2024-06-02 | Outpatient (CLI) | payer MEDICARE ==
[~2024-06-02] MED LIST changes: -CELE-384 PO; +CELE200C3 PO; +METO-296 PO
[2024-06-02 12:03] LABS: BASOPHILS # (AUTO) 0.07 K/uL (0.00-0.20); BASOPHILS % (AUTO) 1.2 % (0.0-5.0); EOSINOPHILS # (AUTO) 0.18 K/uL (0.00-0.70); HEMATOCRIT 39.1 % (36-48); IMMATURE GRANULOCYTE ABSOLUTE 0.02 K/uL (0-1); LYMPHOCYTES # (AUTO) 1.5 K/uL (1.0-4.8); LYMPHOCYTES % (AUTO) 24.9 % (21.0-51.0); MEAN CORPUSCULAR HEMOGLOBIN 31.9 pg (27.0-33.0); MEAN CORPUSCULAR HGB CONC 33.2 g/dL (32.0-36.0); MEAN CORPUSCULAR VOLUME 95.8 fL (79-99); MONOCYTES # (AUTO) 0.6 K/uL (0.1-1.0); MONOCYTES % (AUTO) 9.1 % (3.0-13.0); NEUTROPHILS # (AUTO) 3.7 K/uL (1.8-7.7); NEUTROPHILS % (AUTO) 61.5 % (40.0-77.0); PLATELET COUNT (AUTO) 243 K/uL (130-400); RED BLOOD CELL COUNT(AUTO) 4.08 MIL/uL (4.00-5.50); RED CELL DISTRIBUTION WIDTH 12.1 % (11.0-15.5)
[2024-06-02 12:20] LABS: ALBUMIN 3.1 g/dL (3.5-5.0); BILIRUBIN,TOTAL 0.5 mg/dL (0.2-1.0); CREATININE 0.7 mg/dL (0.5-1.0); POTASSIUM 3.9 mmol/L (3.5-5.1); TOTAL PROTEIN, SERUM 6.8 g/dL (6.0-8.3)
== END | disposition home or self-care (01) ==
LOC: LAB 10:29
PROVIDERS: ATTEND Internal Medicine Cardiovascular Disease
DX: I48.0 Paroxysmal atrial fibrillation (principal); D68.59 Other primary thrombophilia
CPT/HCPCS: 36415; 80053; 85025

== ENCOUNTER 2024-06-22 08:44 | Emergency (ER) | payer MEDICARE ==
[~2024-06-22] VITALS: Ht 165.1 cm; Wt 86.2 kg
[2024-06-22] MEDS ORDERED: MORPHINE 4 MG SYG IVP ONE (10:30)
[2024-06-22] MEDS: ORPHENADRINE 60MG/2ML IM ONE (11:30)
[2024-06-22] MEDS: DEXAMETHASONE 4 MG TAB PO SCH (11:30)
[2024-06-22 12:15] VITALS: BP 164/66; PULSE 82; RESP 16; O2SAT 98
== END 2024-06-22 12:12 | disposition home or self-care (01) ==
LOC: EDH 08:44
DX: M54.41 Lumbago with sciatica, right side (principal); K59.00 Constipation, unspecified; I48.91 Unspecified atrial fibrillation; I10 Essential (primary) hypertension; E11.9 Type 2 diabetes mellitus without complications; F32.A Depression, unspecified; M19.90 Unspecified osteoarthritis, unspecified site; Z88.8 Allergy status to other drugs, medicaments and biological substances; Z88.1 Allergy status to other antibiotic agents; Z88.6 Allergy status to analgesic agent; Z79.899 Other long term (current) drug therapy; Z79.2 Long term (current) use of antibiotics; Z79.84 Long term (current) use of oral hypoglycemic drugs; Z90.710 Acquired absence of both cervix and uterus; Z98.890 Other specified postprocedural states
CPT/HCPCS: 99285; 96372; J8540; J2360

== ENCOUNTER 2024-08-03 11:46 | Emergency (ER) | payer MEDICARE ==
[~2024-08-03] VITALS: Ht 165.1 cm; Wt 88.5 kg
[~2024-08-03 11:46] MED LIST changes: +ONDA-243 PO
[2024-08-03 12:15] VITALS: BP 152/90; PULSE 88; RESP 18; TEMP 98.6; O2SAT 98
== END 2024-08-03 13:34 | disposition home or self-care (01) ==
LOC: EDH 11:46
DX: N61.0 Mastitis without abscess (principal); E11.9 Type 2 diabetes mellitus without complications; I10 Essential (primary) hypertension; I48.91 Unspecified atrial fibrillation; M19.90 Unspecified osteoarthritis, unspecified site; Z79.1 Long term (current) use of non-steroidal anti-inflammatories (NSAID); Z79.624 Long term (current) use of inhibitors of nucleotide synthesis; Z79.899 Other long term (current) drug therapy; Z88.6 Allergy status to analgesic agent; Z88.8 Allergy status to other drugs, medicaments and biological substances; Z90.710 Acquired absence of both cervix and uterus; Z98.890 Other specified postprocedural states
CPT/HCPCS: 99281

== ENCOUNTER 2024-08-11 22:29 | Inpatient (IN) | payer MEDICARE ==
[~2024-08-11] VITALS: Ht 165.1 cm; Wt 87.4 kg
[2024-08-11 23:00] LABS: BASOPHILS # (AUTO) 0.08 K/uL (0.00-0.20); EOSINOPHILS # (AUTO) 0.21 K/uL (0.00-0.70); EOSINOPHILS % (AUTO) 2.6 % (0.0-8.0); HEMATOCRIT 36.8 % (36-48); IMMATURE GRANULOCYTE ABSOLUTE 0.01 K/uL (0-1); LYMPHOCYTES # (AUTO) 2.1 K/uL (1.0-4.8); LYMPHOCYTES % (AUTO) 26.2 % (21.0-51.0); MEAN CORPUSCULAR HEMOGLOBIN 31.6 pg (27.0-33.0); MEAN CORPUSCULAR HGB CONC 33.7 g/dL (32.0-36.0); MEAN CORPUSCULAR VOLUME 93.6 fL (79-99); MONOCYTES # (AUTO) 0.8 K/uL (0.1-1.0); MONOCYTES % (AUTO) 9.5 % (3.0-13.0); NEUTROPHILS # (AUTO) 4.9 K/uL (1.8-7.7); NEUTROPHILS % (AUTO) 60.6 % (40.0-77.0); PLATELET COUNT (AUTO) 285 K/uL (130-400); RED BLOOD CELL COUNT(AUTO) 3.93 MIL/uL (4.00-5.50); WHITE BLOOD COUNT (AUTO) 8.1 K/uL (4.8-10.8)
[2024-08-11] MEDS ORDERED: LIFI1DRO OP (23:08)
[2024-08-11] MEDS ORDERED: SENN8.6T90 PO (23:08)
[2024-08-11] MEDS ORDERED: SITA100T12 PO (23:08)
[2024-08-11] MEDS ORDERED: INSU300I SQ (23:08)
[2024-08-11] MEDS ORDERED: APIX5TAB PO (23:08)
[2024-08-11] MEDS ORDERED: METO-391 PO (23:08)
[2024-08-11 23:10] LABS: CREATININE 0.9 mg/dL (0.5-1.0); INR 1.05 (0.85-1.15); POTASSIUM 4.1 mmol/L (3.5-5.1); PROTHROMBIN TIME 11.3 SEC (9.6-11.6)
[2024-08-11 23:11] LABS: PARTIAL THROMBOPLASTIN TIME 28.5 SEC (26.3-35.5)
[2024-08-11] MEDS: CLINDAMYCIN IVPB 300MG/50ML 50 ML IV SCH (23:12)
[2024-08-12] VITALS (7 sets, daily range): BP systolic 95–165; BP diastolic 59–78; PULSE 62–79; RESP 18–20; TEMP 97.4–98.2; O2SAT 98–99
[2024-08-12] MEDS ORDERED: acetaMINOPHEN 325 MG TAB PO PRN (00:30)
[2024-08-12] MEDS ORDERED: ondanSETRON 4MG INJ IV PRN (00:30)
[2024-08-12] MEDS ORDERED: MAGNESIUM 2GM PREMIX 50ML 50 ML IV PRN (00:30)
[2024-08-12] MEDS ORDERED: GLUCAGON 1MG KIT 1 MG ML IM PRN (00:30)
[2024-08-12] MEDS ORDERED: DEXTROSE 50%-WATER 50 ML DISP.SYRIN IV PRN (00:30)
[2024-08-12] MEDS ORDERED: PoTASSium chl 10% ELIXIR 20MEQ 20 MEQ/15 ML UDCUP PO PRN (00:30)
[2024-08-12] MEDS: CLINDAMYCIN IVPB 600MG/50ML 50 ML IV SCH (00:30)
[2024-08-12] MEDS ORDERED: PoTASSium chloRIDE 20MEQ/100ML 100 ML IV PRN (00:30)
[2024-08-12] MEDS: INSULIN humuLIN R 100 UNIT/ML 3ML SQ SCH (05:33)
[2024-08-12 06:04] LABS: BASOPHILS # (AUTO) 0.07 K/uL (0.00-0.20); EOSINOPHILS # (AUTO) 0.18 K/uL (0.00-0.70); EOSINOPHILS % (AUTO) 2.6 % (0.0-8.0); HEMATOCRIT 35.5 % (36-48); IMMATURE GRANULOCYTE ABSOLUTE 0.02 K/uL (0-1); LYMPHOCYTES # (AUTO) 1.9 K/uL (1.0-4.8); LYMPHOCYTES % (AUTO) 26.9 % (21.0-51.0); MEAN CORPUSCULAR HEMOGLOBIN 32.1 pg (27.0-33.0); MEAN CORPUSCULAR VOLUME 97.3 fL (79-99); MONOCYTES # (AUTO) 0.7 K/uL (0.1-1.0); MONOCYTES % (AUTO) 9.9 % (3.0-13.0); NEUTROPHILS # (AUTO) 4.1 K/uL (1.8-7.7); NEUTROPHILS % (AUTO) 59.3 % (40.0-77.0); PLATELET COUNT (AUTO) 238 K/uL (130-400); RED BLOOD CELL COUNT(AUTO) 3.65 MIL/uL (4.00-5.50); RED CELL DISTRIBUTION WIDTH 11.9 % (11.0-15.5); WHITE BLOOD COUNT (AUTO) 6.9 K/uL (4.8-10.8)
[2024-08-12 06:30] LABS: ALBUMIN 2.9 g/dL (3.5-5.0); BILIRUBIN,TOTAL 0.4 mg/dL (0.2-1.0); CREATININE 0.8 mg/dL (0.5-1.0); MAGNESIUM 2.1 mg/dL (1.80-2.40); POTASSIUM 4.5 mmol/L (3.5-5.1); TOTAL PROTEIN, SERUM 6.5 g/dL (6.0-8.3)
[2024-08-12] MEDS: FAMOTIDINE 20MG TAB PO SCH (08:33)
[2024-08-12] MEDS ORDERED: VANCOMYCIN PROTOCOL PER PHARMACY IV SCH (14:00)
[2024-08-12] MEDS: VANCOMYCIN 2GM/500 ML BAG 500 ML IV ONE (15:43)
[2024-08-12] MEDS: ceFEPime HCL 1 GM VIAL IVPB SCH (15:43)
[2024-08-12] MEDS: doCUSate SODIUM 100 MG CAP PO SCH (15:45)
[2024-08-12] MEDS: metOPROLol sucCINATE 50 MG TAB.SR.24H PO SCH (17:22)
[2024-08-12] MEDS: DiphenhydrAMINE HCL 50 MG/ML VIAL IV SCH (18:23)
[2024-08-13] VITALS (8 sets, daily range): BP systolic 115–157; BP diastolic 49–69; PULSE 66–95; RESP 18–20; TEMP 97.7–98.3; O2SAT 96–99
[2024-08-13] MEDS: VANCOMYCIN 1G/250ML KIT 250 ML IV SCH (01:50)
[2024-08-13 05:07] LABS: HEMATOCRIT 35.3 % (36-48); MEAN CORPUSCULAR HEMOGLOBIN 31.2 pg (27.0-33.0); MEAN CORPUSCULAR HGB CONC 32.3 g/dL (32.0-36.0); MEAN CORPUSCULAR VOLUME 96.7 fL (79-99); RED BLOOD CELL COUNT(AUTO) 3.65 MIL/uL (4.00-5.50); RED CELL DISTRIBUTION WIDTH 11.9 % (11.0-15.5); WHITE BLOOD COUNT (AUTO) 6.2 K/uL (4.8-10.8)
[2024-08-13 05:21] LABS: CREATININE 0.8 mg/dL (0.5-1.0)
[2024-08-13] MEDS: LoSARTan 100 MG TABLET PO SCH (08:28)
[2024-08-13] MEDS: BisaCODYL 10 MG SUPP.RECT RC ONE (08:29)
[2024-08-13] MEDS ORDERED: LACTULOSE 20 GM/30 ML UDCUP PO PRN (17:30)
[2024-08-13] MEDS: LACTULOSE 20 GM/30 ML UDCUP PO PRN (17:35)
[2024-08-14] VITALS (7 sets, daily range): BP systolic 100–144; BP diastolic 50–76; PULSE 69–99; RESP 16–20; TEMP 97.7–98.5; O2SAT 98
[2024-08-14 05:44] LABS: MEAN CORPUSCULAR HEMOGLOBIN 31.9 pg (27.0-33.0); MEAN CORPUSCULAR HGB CONC 32.8 g/dL (32.0-36.0); MEAN CORPUSCULAR VOLUME 97.3 fL (79-99); RED BLOOD CELL COUNT(AUTO) 3.7 MIL/uL (4.00-5.50); RED CELL DISTRIBUTION WIDTH 11.9 % (11.0-15.5); WHITE BLOOD COUNT (AUTO) 6.4 K/uL (4.8-10.8)
[2024-08-14 06:08] LABS: CREATININE 0.6 mg/dL (0.5-1.0); POTASSIUM 4.2 mmol/L (3.5-5.1)
[2024-08-14] MEDS: acetaMINOPHEN 325 MG TAB PO PRN (08:08)
[2024-08-15] VITALS (26 sets, daily range): BP systolic 129–182; BP diastolic 54–79; PULSE 63–85; RESP 13–20; TEMP 97.4–98.6; O2SAT 96–97
[2024-08-15 05:09] LABS: HEMATOCRIT 33.2 % (36-48); MEAN CORPUSCULAR HEMOGLOBIN 31.8 pg (27.0-33.0); MEAN CORPUSCULAR HGB CONC 33.1 g/dL (32.0-36.0); RED BLOOD CELL COUNT(AUTO) 3.46 MIL/uL (4.00-5.50); RED CELL DISTRIBUTION WIDTH 11.9 % (11.0-15.5); WHITE BLOOD COUNT (AUTO) 6.2 K/uL (4.8-10.8)
[2024-08-15 05:12] LABS: CREATININE 0.6 mg/dL (0.5-1.0); POTASSIUM 3.8 mmol/L (3.5-5.1)
[2024-08-15] MEDS: FAMOTIDINE 20MG VIAL IV ONE (12:35)
[2024-08-15] MEDS: acetaMINOPHEN 1,000 MG/100 ML VIAL IV ONE (12:35)
[2024-08-15] MEDS ORDERED: proPOFol 10 MG/ML 20ML VIAL IV ONE (12:42)
[2024-08-15] MEDS ORDERED: LIDOCAINE PF 100MG/5ML (2%) SYRINGE 5ML ONE (12:42)
[2024-08-15] MEDS ORDERED: rocuRONium bROMide 10MG/1ML 5ML VL ONE (12:42)
[2024-08-15] MEDS ORDERED: FENTanyl CITRate PF 50 MCG/1 ML 2ML VIAL ONE (12:43)
[2024-08-15] MEDS ORDERED: dexaMETHasone SOD PHOSPHATE 10MG/ML 1ML VIAL ONE (13:27)
[2024-08-15] MEDS ORDERED: ondanSETRON 4MG INJ ONE (13:27)
[2024-08-15] MEDS ORDERED: GLYCOPYRROLATE 0.2 MG/ML 5 ML VIAL ONE (13:31)
[2024-08-15] MEDS ORDERED: ePHEDrine SULFate 50 MG/ML AMPULE ONE (13:32)
[2024-08-15] MEDS: PoTASSium chloRIDE 20MEQ ER 20 MEQ ERTAB PO PRN (15:00)
[2024-08-15] MEDS: ketOROlac 30MG VIAL (30MG/ML) IJ PRN (15:06)
[2024-08-15] MEDS: VANCOMYCIN 1G/250ML KIT 250 ML IV SCH (16:15)
[2024-08-15] MEDS: traMADol HCL 50 MG TABLET PO PRN (16:21)
[2024-08-16] VITALS (7 sets, daily range): BP systolic 126–151; BP diastolic 57–79; PULSE 59–77; RESP 16–18; TEMP 97.7–98.4; O2SAT 99
[2024-08-16 04:07] LABS: HEMATOCRIT 31.6 % (36-48); MEAN CORPUSCULAR HEMOGLOBIN 32.2 pg (27.0-33.0); MEAN CORPUSCULAR HGB CONC 34.5 g/dL (32.0-36.0); MEAN CORPUSCULAR VOLUME 93.2 fL (79-99); RED BLOOD CELL COUNT(AUTO) 3.39 MIL/uL (4.00-5.50); RED CELL DISTRIBUTION WIDTH 11.7 % (11.0-15.5); WHITE BLOOD COUNT (AUTO) 7.4 K/uL (4.8-10.8)
[2024-08-16 04:27] LABS: CREATININE 0.8 mg/dL (0.5-1.0); POTASSIUM 4.3 mmol/L (3.5-5.1)
[2024-08-17] VITALS (9 sets, daily range): BP systolic 124–155; BP diastolic 54–86; PULSE 55–69; RESP 16–19; TEMP 97.5–98.2; O2SAT 98–99
[2024-08-17 09:55] LABS: BASOPHILS # (AUTO) 0.07 K/uL (0.00-0.20); BASOPHILS % (AUTO) 0.8 % (0.0-5.0); EOSINOPHILS # (AUTO) 0.12 K/uL (0.00-0.70); EOSINOPHILS % (AUTO) 1.4 % (0.0-8.0); HEMATOCRIT 33.4 % (36-48); IMMATURE GRANULOCYTE ABSOLUTE 0.03 K/uL (0-1); LYMPHOCYTES # (AUTO) 2.8 K/uL (1.0-4.8); LYMPHOCYTES % (AUTO) 31.5 % (21.0-51.0); MEAN CORPUSCULAR HEMOGLOBIN 32.4 pg (27.0-33.0); MEAN CORPUSCULAR HGB CONC 33.2 g/dL (32.0-36.0); MEAN CORPUSCULAR VOLUME 97.4 fL (79-99); MONOCYTES # (AUTO) 0.7 K/uL (0.1-1.0); MONOCYTES % (AUTO) 7.5 % (3.0-13.0); NEUTROPHILS # (AUTO) 5.1 K/uL (1.8-7.7); NEUTROPHILS % (AUTO) 58.5 % (40.0-77.0); PLATELET COUNT (AUTO) 258 K/uL (130-400); RED BLOOD CELL COUNT(AUTO) 3.43 MIL/uL (4.00-5.50); WHITE BLOOD COUNT (AUTO) 8.8 K/uL (4.8-10.8)
[2024-08-17 10:07] LABS: CREATININE 0.8 mg/dL (0.5-1.0); MAGNESIUM 1.7 mg/dL (1.80-2.40)
[2024-08-17] MEDS: APIXaban 5 MG TABLET PO SCH (21:11)
[2024-08-18 03:58] VITALS: BP 140/82; PULSE 71; RESP 18; TEMP 97.9
[2024-08-18] MEDS: acetaMINOPHEN WITH coDEINE 1 TAB TAB PO PRN (05:11)
[2024-08-18 07:35] VITALS: BP 147/66; PULSE 62; RESP 16; TEMP 97.8
[2024-08-18 09:50] VITALS: O2SAT 98
[2024-08-18 11:17] LABS: CREATININE 0.7 mg/dL (0.5-1.0); MAGNESIUM 1.8 mg/dL (1.80-2.40); POTASSIUM 3.7 mmol/L (3.5-5.1)
[2024-08-18 11:50] VITALS: BP 164/90; PULSE 68; RESP 19; TEMP 98.4
[2024-08-18] MEDS ORDERED: ACET-2079 PO (12:45)
== END 2024-08-18 16:45 | disposition home health service (06) | DRG 585 ==
LOC: EDH 22:29 → EDHIP 08-12 00:14 → 3CH 08-12 01:28
PROVIDERS: ADMIT Internal Medicine; ATTEND Internal Medicine
PROC: 0HBT0ZX Excision of Right Breast, Open Approach, Diagnostic (ICD-10-PCS; principal; 2024-08-15 13:17)
DX: N61.1 Abscess of the breast and nipple (principal); E11.9 Type 2 diabetes mellitus without complications; I10 Essential (primary) hypertension; I48.91 Unspecified atrial fibrillation; M19.90 Unspecified osteoarthritis, unspecified site; F40.240 Claustrophobia; E66.9 Obesity, unspecified; Z88.1 Allergy status to other antibiotic agents; Z88.8 Allergy status to other drugs, medicaments and biological substances; Z82.49 Family history of ischemic heart disease and other diseases of the circulatory system; Z79.01 Long term (current) use of anticoagulants; Z82.5 Family history of asthma and other chronic lower respiratory diseases; Z83.3 Family history of diabetes mellitus; Z90.710 Acquired absence of both cervix and uterus; Z68.32 Body mass index [BMI] 32.0-32.9, adult; Z79.4 Long term (current) use of insulin
CPT/HCPCS: 36415; 71045; 76604; 80048; 80053; 80202; 82948; 83735; 85025; 85027; 85610; 85730; 86850; 86900; 86901; 87070; 87076; 87205; 88305; 93005; 96365; G0378; J0692; J1100; J1200; J1815; J1885; J2003; J2405; J2704; J3010; J3370; J3490; A4452

== ENCOUNTER 2024-08-22 08:40 | Emergency (ER) | payer MEDICARE ==
[~2024-08-22] VITALS: Ht 165.1 cm; Wt 88.5 kg
[~2024-08-22 08:40] MED LIST changes: +ACET-2079 PO; +APIX5TAB PO; -CARB15DR OP; -CELE200C3 PO; -CEPH500B PO; -CYCL10TA16 PO; -DOCU-116 PO; -GABA-529 PO; +INSU300I SQ; -INSU300I3 SQ; -LEVO-70 PO; +LIFI1DRO OP; -METO-296 PO; -METR-172 PO; -ONDA-243 PO; -PREMC VG; -RIVA20TA PO; +SENN8.6T90 PO; -SENNA TEA PO; -TURM500C9 PO; -VALA500T42 PO; -VITAMIN D PO; -WHEA1POW2 PO
[2024-08-22] MEDS: Solu-medROL 40MG VIAL IVP ONE (09:18)
[2024-08-22] MEDS ORDERED: AMOX1TAB16 PO (09:33)
[2024-08-22] MEDS ORDERED: PRED20TA3 PO (09:33)
[2024-08-22 09:45] VITALS: BP 108/86; PULSE 67; RESP 13; TEMP 97.8; O2SAT 100
== END 2024-08-22 09:46 | disposition home or self-care (01) ==
LOC: EDH 08:40
DX: L50.0 Allergic urticaria (principal); T36.4X5A Adverse effect of tetracyclines, initial encounter; T37.3X5A Adverse effect of other antiprotozoal drugs, initial encounter; I48.91 Unspecified atrial fibrillation; E11.9 Type 2 diabetes mellitus without complications; I10 Essential (primary) hypertension; M19.90 Unspecified osteoarthritis, unspecified site; Z88.8 Allergy status to other drugs, medicaments and biological substances; Z88.6 Allergy status to analgesic agent; Z79.4 Long term (current) use of insulin; Z79.01 Long term (current) use of anticoagulants; Z90.710 Acquired absence of both cervix and uterus; Z98.890 Other specified postprocedural states; Z90.89 Acquired absence of other organs; Y92.89 Other specified places as the place of occurrence of the external cause
CPT/HCPCS: 99283; 96374; J2919

== ENCOUNTER 2025-02-06 02:06 | Emergency (ER) | payer MEDICARE ==
[~2025-02-06] VITALS: Ht 165.1 cm; Wt 88.5 kg
[~2025-02-06 02:06] MED LIST changes: +AMOX1TAB16 PO; +PRED20TA3 PO
--- NOTE | 2025-02-06 02:33 | ERN ---
General Chief Complaint: Lower Extremity Pain/Injury Stated Complaint: RT LEG PAIN Time Seen by MD: 02:12 Source: patient History of Present Illness Initial Comments Patient has right lower extremity pain that starts on her side and then radiates down into her groin and then her medial thigh on the right side. It also migrates around to the back. She feels like it is nerve pain. She feels like it is from having to strain so much because she has constipation. She comes in today because the pain is worse than it has ever been and she can not sleep. She describes the pain as a pulled nerve like sciatica Allergies: Coded Allergies: NSAIDS (Non-Steroidal Anti-Inflamma (Unverified Allergy, Unknown, 06/22/24) celecoxib (Unverified Allergy, Unknown, 06/22/24) chlorzoxazone (Unverified Allergy, Unknown, 05/28/18) citalopram (Unverified Allergy, Unknown, 08/31/22) clonazepam (Unverified Allergy, Unknown, 05/28/18) diclofenac (Unverified Allergy, Unknown, 06/22/24) doxycycline (Unverified Allergy, Unknown, RASH, 08/22/24) etodolac (Unverified Allergy, Unknown, 06/22/24) hydroxyzine (Unverified Allergy, Unknown, 08/31/22) ibuprofen (Unverified Allergy, Unknown, 06/22/24) indomethacin (Unverified Allergy, Unknown, 06/22/24) ketoprofen (Unverified Allergy, Unknown, 06/22/24) ketorolac (Unverified Allergy, Unknown, 06/22/24) meloxicam (Unverified Allergy, Unknown, 06/22/24) metronidazole (Unverified Allergy, Unknown, RASH, 08/22/24) nabumetone (Unverified Allergy, Unknown, 06/22/24) naproxen (Unverified Allergy, Unknown, 06/22/24) piroxicam (Unverified Allergy, Unknown, 06/22/24) sulindac (Unverified Allergy, Unknown, 06/22/24) diltiazem (Unverified Adverse Reaction, Unknown, 05/16/22) side effect voiced per pt enalapril (Unverified Adverse Reaction, Unknown, 05/16/22) side effect voiced per pt hydrochlorothiazide (Unverified Adverse Reaction, Unknown, 05/16/22) side effect voiced per patient Home Meds Active Scripts Prednisone (Prednisone) 20 Mg Tablet, 1 TAB PO BID for 2 Days, #4 TAB 0 Refills Prov:ETIENNEBRADLEY Edwin DO 08/22/24 Amoxicillin/Potassium Clav (Amox Tr-K Clv 875-125 mg Tab) 875 Mg-125 Mg Tablet, 1 TAB PO BID for 10 Days, #20 TAB 0 Refills Prov:BRADLEY CLIFTON DO 08/22/24 Acetaminophen with Codeine (Acetaminophen-Cod #3 Tablet) 300 Mg-30 Mg Tablet, 1 TAB PO Q6HPRN PRN for pain for 5 Days, #10 TAB 0 Refills Prov:ASHER VIRGEN YARD SPECIALIST 08/18/24 Reported Medications Sennosides (Senokot) 8.6 Mg Tablet, 1 TAB PO HS for constipation for 20 Days, #40 TAB 0 Refills 08/11/24 Lifitegrast (Xiidra) 5 % Droperette, 1 EACH OP DAILY, DROP 08/11/24 Insulin Glargine,Hum.rec.anlog (Toujeo Solostar) 300 Unit/Ml (1.5 Ml) Insuln.pen, 30 UNIT SQ DAILY, SYRINGE 08/11/24 Apixaban (Eliquis) 5 Mg Tablet, 1 TAB PO BID for 30 Days, #60 TAB 0 Refills 08/11/24 Sitagliptin Phosphate (Januvia) 100 Mg Tablet, 1 TAB PO DAILYDINNER for 30 Days, #30 TAB 0 Refills 08/11/24 Metoprolol Succinate (Metoprolol Succinate) 50 Mg Tab.er.24h, 1 TAB PO DAILYDINNER for 30 Days, #30 TAB 0 Refills 08/11/24 Losartan Potassium (Losartan Potassium) 100 Mg Tablet, 100 MG PO AM, TAB 05/15/22 Metformin HCl (Metformin HCl) 500 Mg Tablet, 500 MG PO AM, TAB 05/15/22 Past Medical History Past Medical History: A-Fib, Constipation, Diabetes-Type II, Diverticulosis, High Cholesterol, Hypertension, Migraines Medical History Other: HERNIATED DISCS, OSTEOARTHRITIS; Past Surgical History: Hysterectomy, Tonsillectomy Surgical History Other: ABD HERNIA REPAIR, OVARIAN SX, RECTOCELE, RT BREAST RECURRENY CYST REMOVA Family History Family History: Negative Social History Social History: Negative, Lives with family ROS Dictation Review of systems is negative beyond what is in the HPI. No decreased mental status no visual changes no chest pain no shortness of breath no abdominal, pain except in the right groin, no peripheral vascular disease. No pain when urinating. No upper respiratory tract infections. Physical Exam General Appearance: (+) moderate distress Orientation: (+) oriented x 3 Head/Face Trauma: No Eye: bilateral eye normal inspection, bilateral eye PERRL, bilateral eye EOMI Ear, Nose, Throat: (+) hearing grossly normal, (+) normal ENT inspection, (+) moist mucous membraine Neck: (+) normal inspection, (+) supple, (+) full range of motion Respiratory: (+) chest non-tender, (+) lungs clear, (+) well ventilated Heart: (+) regular, (+) no gallop Vascular: (+) no edema, (+) normal peripheral pulse Gastrointestinal: (+) soft, (+) non-tender, (+) no organomegaly Gastrointestinal Comment Patient does not have any evidence of a inguinal hernia. Back Comment When I examine her back and palpate along the latissimus dorsi and thoracolumbar muscle/fascia on the right I do not elicit any pain. Nor do I elicit any pain when I push on her iliac crest for her inguinal region. Also the piriformis muscle had no tenderness Results Laboratory and Microbiology Lab and Micro Result Laboratory Tests Test 02/06/25 03:42 Urine Color LIGHT-YELLOW (YELLOW) Urine Appearance CLEAR (CLEAR) Urine pH 7.5 (5.0-8.0) Urine Specific [place] 1.009 (1.001-1.031) Urine Protein NEGATIVE mg/dL (NEGATIVE) Urine Glucose (UA) NEGATIVE mg/dL (NEGATIVE) Urine Ketones NEGATIVE mg/dL (NEGATIVE) Urine Occult Blood NEGATIVE (NEGATIVE) Urine Nitrate NEGATIVE (NEGATIVE) Urine Bilirubin NEGATIVE mg/dL (NEGATIVE) Urine Urobilinogen 0.2 mg/dL (0.2-1.0) Urine Leukocyte Esterase NEGATIVE Diogo/uL MDM The patient is on Eliquis and therefore can not take any NSAIDs. She has been trying Tylenol but it is not sufficient to quell the pain. I will get a lumbar series by CT scan and then also I will treat her with Flexeril to see if it makes a difference. Patient may need gabapentin or Lyrica. I will also get a UA. Patient's CT scan shows extensive arthritic changes throughout the patient's spinal cord in the lumbar region possible slippage at L two three. I talked to the patient she is going to a pain clinic they are in the process of getting MRIs to see if there is any nerve impingement and if any cortisone injections can help. She has tried a variety of pain medications without success. She does not know why she stopped taking gabapentin but it did work. I asked if she had tripped were jerked or tweaked her back like stepping off a curb suddenly and she said that indeed she had about two weeks ago and that is when her pain started. The UA is negative. I will give the patient 10 mg of p.o. oxycodone to see if that will help with the pain. If it does I will discharge her with a few days' supply of that and then also I will give her a prescription for Lyrica and if her insurance company will not pay for Lyrica then gabapentin. In the meantime she will try and get into her pain clinic. The oxycodone is working I will discharge the patient home. ED Course Orders Procedure Category Date Status Time Ct Lumbar Spine W/O CT 02/06/25 Taken Contrast 02:34 Pregabalin 25mg PHA 02/06/25 Complete (Lyrica 25mg) 03:00 Cyclobenzaprine Hcl PHA 02/06/25 Complete (Cyclobenzaprine Hcl 03:00 Urinalysis Profile LAB 02/06/25 Complete 02:34 Fentanyl Citrate Pf PHA 02/06/25 Complete 0.05 Mg/Ml (Fentanyl 04:00 Oxycodone Hcl 5 Mg PHA 02/06/25 Complete Tab (Roxicodone) 04:30 Current Medications Medications (Trade) Dose Ordered Sig/Kianna Route PRN Reason Start Time Stop Time Status Last Admin Dose Admin Cyclobenzaprine HCl (Cyclobenzaprine HCl) 10 mg ONCE ONCE PO 02/06/25 03:00 02/06/25 03:01 DC 02/06/25 02:49 Fentanyl Citrate 1000 mcg/Sodium Chloride 100 ml @ 0 mls/hr PROTOCOL IVPB 02/06/25 04:00 02/06/25 04:21 DC Oxycodone HCl (ROXicoDONE) 10 mg ONCE ONCE PO 02/06/25 04:30 02/06/25 04:31 DC 02/06/25 04:19 Pregabalin (LYRica 25MG) 25 mg ONCE ONCE PO 02/06/25 03:00 02/06/25 03:01 DC 02/06/25 02:49 Vital Signs Date Time Temp Pulse Resp B/P (MAP) Pulse Ox O2 Delivery O2 Flow Rate FiO2 02/06/25 04:35 75 18 169/62 98 Room Air* 0 21 02/06/25 03:06 75 17 175/78 95 Room Air* 0 21 02/06/25 02:17 98.1 72 18 192/86 96 Room Air* 0 21 02/06/25 02:08 97.7 67 18 180/68 97 Room Air DX & DISP Disposition: Discharge Departure Impression: Primary Impression: Nerve pain due to spinal stenosis Condition: Stable Scripts Gabapentin (Gabapentin) 400 Mg Capsule 1 CAP PO TID for 10 Days, #30 CAP 0 Refills Prov: JUDITH LUIS MD 02/06/25 Pregabalin (Lyrica) 25 Mg Cap 1 CAP PO BID for 30 Days, #60 CAP 0 Refills Prov: JUDITH LUIS MD 02/06/25 Oxycodone HCl (Oxycodone HCl) 5 Mg Capsule 1 CAP PO QIDP PRN for pain for 5 Days, #15 CAP 0 Refills Prov: JUDITH LUIS MD 02/06/25 Referrals: KULDIP NEWTON MD (PCP) JUDITH LUIS MD Feb 06, 2025 02:33
[2025-02-06] MEDS: pregABALin 25 MG CAP PO ONE (02:49)
[2025-02-06] MEDS: CYCLOBENZAPRINE HCL 10 MG TABLET PO ONE (02:49)
--- NOTE | 2025-02-06 03:11 | NUR ---
PT TAKEN TO CT AT THIS TIME
--- NOTE | 2025-02-06 03:19 | NUR ---
PT BACK FROM CT AT THIS TIME
[2025-02-06 03:50] LABS: APPEARANCE,URINE CLEAR (CLEAR); BILIRUBIN,URINE NEGATIVE (NEGATIVE); COLOR,URINE LIGHT-YELLOW (YELLOW); GLUCOSE, URINE (UA) NEGATIVE (NEGATIVE); KETONES,URINE NEGATIVE (NEGATIVE); LEUKOCYTE ESTERASE ,URINE NEGATIVE Leu/uL (NEGATIVE); NITRATE,URINE NEGATIVE (NEGATIVE); OCCULT BLOOD,URINE NEGATIVE (NEGATIVE); PH,URINE 7.5 (5.0-8.0); PROTEIN,URINE NEGATIVE (NEGATIVE); UROBILINOGEN,URINE 0.2 mg/dL (0.2-1.0)
[2025-02-06 03:51] LABS: ADD UA MICROSCOPIC NO
[2025-02-06] MEDS ORDERED: FENTanyl CITRate PF 0.05 MG/ML 1,000 MCG in 0.9%NACL 100ML 100 ML IVPB SCH (04:00)
[2025-02-06] MEDS: OXYcodONE HCL 5 MG TAB PO ONE (04:19)
[2025-02-06] MEDS ORDERED: OXYC5CAP22 PO (05:13)
[2025-02-06] MEDS ORDERED: GABA-534 PO (05:13)
[2025-02-06] MEDS ORDERED: PREG25 PO (05:13)
[2025-02-06 05:28] VITALS: BP 154/65; PULSE 75; RESP 16; TEMP 98.5; O2SAT 98
--- NOTE | 2025-02-06 08:26 | HMCIMG ---
CT LUMBAR SPINE W/O CONTRAST HISTORY: Right leg pain COMPARISON: None TECHNIQUE: Multiple sequential axial images of the lumbar spine were obtained including post processing sagittal and coronal reconstruction images. Patient was not given contrast through intravenous route. FINDINGS: There are degenerative changes with lumbar spine spondylosis. Disc/osteophyte complexes are seen at T12-L1 through L4-L5 level causing central canal narrowing. There is no loss of vertebral height. Evaluation for disc and cord pathology is limited with CT study. No evidence of fracture or dislocation is seen. 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 IMPRESSION: 1. No fracture is seen. DJD with lumbar spine spondylosis with central canal narrowing. CT was performed with one or more following dose reduction techniques: automated exposure control, adjustment of the mA and kv according to patient's size, or use of a iterative reconstruction technique.
== END 2025-02-06 05:40 | disposition home or self-care (01) ==
LOC: EDH 02:06
DX: M48.061 Spinal stenosis, lumbar region without neurogenic claudication (principal); E11.9 Type 2 diabetes mellitus without complications; E78.00 Pure hypercholesterolemia, unspecified; I10 Essential (primary) hypertension; I48.91 Unspecified atrial fibrillation; Z79.01 Long term (current) use of anticoagulants; Z79.4 Long term (current) use of insulin; Z79.52 Long term (current) use of systemic steroids; Z88.1 Allergy status to other antibiotic agents; Z88.6 Allergy status to analgesic agent; Z88.8 Allergy status to other drugs, medicaments and biological substances; Z90.710 Acquired absence of both cervix and uterus; Z98.890 Other specified postprocedural states
CPT/HCPCS: 72131; 81003; 99284

== ENCOUNTER 2025-06-16 17:42 | Emergency (ER) | payer MEDICARE ==
[~2025-06-16] VITALS: Ht 165.1 cm; Wt 88.5 kg
[~2025-06-16 17:42] MED LIST changes: +GABA-534 PO; -LIFI1DRO OP; +LIFI1DRO5 OP; +OXYC5CAP22 PO; +PREG25 PO; -SENN8.6T90 PO; +[UNRECOGNIZED DRUG - CODE] PO
--- NOTE | 2025-06-16 18:23 | ERN ---
General Chief Complaint: Neck Pain Stated Complaint: CHRONIC PAIN TO LT SIDE OF NECK Time Seen by MD: 17:47 Source: patient History of Present Illness Initial Comments Patient is a 70-year-old female coming in complaining of left shoulder neck pain. Per patient she does has a history of chronic neck pain has been evaluated pain management in his pending a steroid injection. Per she has been allergic to rule out a medications just got an MRI two weeks ago and we will be requiring injections. Allergies: Coded Allergies: NSAIDS (Non-Steroidal Anti-Inflamma (Unverified Allergy, Unknown, 06/22/24) celecoxib (Unverified Allergy, Unknown, 06/22/24) cephalexin (Unverified Allergy, Unknown, 06/16/25) chlorzoxazone (Unverified Allergy, Unknown, 05/28/18) citalopram (Unverified Allergy, Unknown, 08/31/22) clonazepam (Unverified Allergy, Unknown, 05/28/18) diclofenac (Unverified Allergy, Unknown, 06/22/24) doxycycline (Unverified Allergy, Unknown, RASH, 08/22/24) etodolac (Unverified Allergy, Unknown, 06/22/24) hydroxyzine (Unverified Allergy, Unknown, 08/31/22) ibuprofen (Unverified Allergy, Unknown, 06/22/24) indomethacin (Unverified Allergy, Unknown, 06/22/24) ketoprofen (Unverified Allergy, Unknown, 06/22/24) ketorolac (Unverified Allergy, Unknown, 06/22/24) meloxicam (Unverified Allergy, Unknown, 06/22/24) metronidazole (Unverified Allergy, Unknown, RASH, 08/22/24) nabumetone (Unverified Allergy, Unknown, 06/22/24) naproxen (Unverified Allergy, Unknown, 06/22/24) piroxicam (Unverified Allergy, Unknown, 06/22/24) sulindac (Unverified Allergy, Unknown, 06/22/24) vancomycin (Unverified Allergy, Unknown, 06/16/25) diltiazem (Unverified Adverse Reaction, Unknown, 05/16/22) side effect voiced per pt enalapril (Unverified Adverse Reaction, Unknown, 05/16/22) side effect voiced per pt hydrochlorothiazide (Unverified Adverse Reaction, Unknown, 05/16/22) side effect voiced per patient Home Meds Active Scripts Gabapentin (Gabapentin) 400 Mg Capsule, 1 CAP PO TID for 10 Days, #30 CAP 0 Refills Prov:JUDITH LUIS MD 02/06/25 Pregabalin (Lyrica) 25 Mg Cap, 1 CAP PO BID for 30 Days, #60 CAP 0 Refills Prov:JUDITH LUIS MD 02/06/25 Oxycodone HCl (Oxycodone HCl) 5 Mg Capsule, 1 CAP PO QIDP PRN for pain for 5 Days, #15 CAP 0 Refills Prov:JUDITH LUIS MD 02/06/25 Prednisone (Prednisone) 20 Mg Tablet, 1 TAB PO BID for 2 Days, #4 TAB 0 Refills Prov:BRADLEY CLIFTON DO 08/22/24 Amoxicillin/Potassium Clav (Amox Tr-K Clv 875-125 mg Tab) 875 Mg-125 Mg Tablet, 1 TAB PO BID for 10 Days, #20 TAB 0 Refills Prov:BRADLEY CLIFTON DO 08/22/24 Acetaminophen with Codeine (Acetaminophen-Cod #3 Tablet) 300 Mg-30 Mg Tablet, 1 TAB PO Q6HPRN PRN for pain for 5 Days, #10 TAB 0 Refills Prov:ASHER VIRGEN NP 08/18/24 Reported Medications Sennosides (Senokot) 8.6 Mg Tablet, 1 TAB PO HS for constipation for 20 Days, #40 TAB 0 Refills 08/11/24 Lifitegrast (Xiidra) 5 % Droperette, 1 EACH OP DAILY, DROP 08/11/24 Insulin Glargine,Hum.rec.anlog (Toujeo Solostar) 300 Unit/Ml (1.5 Ml) Insuln.pen, 30 UNIT SQ DAILY, SYRINGE 08/11/24 Apixaban (Eliquis) 5 Mg Tablet, 1 TAB PO BID for 30 Days, #60 TAB 0 Refills 08/11/24 Sitagliptin Phosphate (Januvia) 100 Mg Tablet, 1 TAB PO DAILYDINNER for 30 Days, #30 TAB 0 Refills 08/11/24 Metoprolol Succinate (Metoprolol Succinate) 50 Mg Tab.er.24h, 1 TAB PO DAILYDINNER for 30 Days, #30 TAB 0 Refills 08/11/24 Losartan Potassium (Losartan Potassium) 100 Mg Tablet, 100 MG PO AM, TAB 05/15/22 Metformin HCl (Metformin HCl) 500 Mg Tablet, 500 MG PO AM, TAB 05/15/22 Past Medical History Past Medical History: A-Fib, Constipation, Diabetes-Type II, Diverticulosis, High Cholesterol, Hypertension, Migraines Medical History Other: HERNIATED DISCS, OSTEOARTHRITIS; Past Surgical History: Hysterectomy, Tonsillectomy Surgical History Other: ABD HERNIA REPAIR, OVARIAN SX, RECTOCELE, RT BREAST RECURRENY CYST REMOVA Family History Family History: Negative Social History Social History: Negative, Lives with family ROS Dictation CONSTITUTIONAL: No chills, no fever, no weakness, no diaphoresis, no malaise. HEAD/FACE: No signs of trauma. EENT: No eye pain, no blurred vision, no tearing, no double vision, no ear pain, no ear discharge, no nose pain, no nasal congestion, no throat pain, no throat swelling, no mouth pain. RESPIRATORY: No cough, no orthopnea, no SOB, no stridor, no wheezing. CARDIOVASCULAR: No chest pain, no edema, no palpitations, no syncope. GASTROINTESTINAL/ABDOMINAL: No abdominal pain, no constipation, no diarrhea, no nausea, no vomiting. GENITOURINARY: No abnormal discharge, no dysuria, no frequent urination, no hematuria. No complaints of pain in the genitals. MUSCULOSKELETAL: back pain, no gout, no joint pain, no joint swelling, muscle pain, no muscle stiffness, neck pain. INTEGUMENTARY: No change in color, no change in hair/nails, no dryness, no l esion, no lumps, no rash. NEUROLOGICAL/PSYCH: No anxiety, not depressed, no emotional problem, no headache, no numbness, no pre-existing deficit, no history of seizures, no tremors, no weakness. HEMATOLOGIC/LYMPHATIC: Not anemic, no history of blood clots, no apparent bleeding, no bruising, glands not swollen. All Systems Negative, Except as Noted. Physical Exam Physical Exam Dictation VITAL SIGNS: Reviewed. GENERAL APPEARANCE: Alert, oriented x3, no acute distress, obese. HEAD AND FACE: Non-traumatic. EYES: PERRL, pink conjunctivas, eyelid no trauma, anterior chamber clear. EARS: Pinnas intact and no signs of trauma or erythema. Ear canals clear and no discharge. TMs no erythema. NOSE: No discharge, no bleeding. OROPHARYNX: Mouth normal, teeth no caries, tongue pink. Pharynx clear, no erythema. Tonsils no exudates, no abscesses noted. Mucous membrane moist. NECK: Supple, non-tender, no thyromegaly, no masses, no JVD, no bruits. BREAST: Deferred. CHEST: tenderness, no crepitus, no paradoxical movement, no retractions. LUNGS: Clear, well-ventilated, symmetric, no rales, no wheezing, no rhonchi, no stridor, good breath sounds bilaterally. HEART: Regular rate, regular rhythm, no murmur, no gallops. VASCULAR: No peripheral edema. ABDOMEN: Soft, positive bowel sounds, nondistended, no guarding, nontender, no rebound, no masses no hepatomegaly, no splenomegaly, no Latham's sign, no hernias. RECTAL: Deferred. GENITAL: Deferred. NEUROLOGICAL: Normal speech, gross motor function intact, gross sensory function intact. MUSCULOSKELETAL: Neck nontender, full range of motion, parts back counter man, full range of motion. EXTREMITIES: Nontender, full range of motion. SKIN: Color pink, dry, no turgor, no rash, no lacerations, no abrasions, no contusions. LYMPHATICS: Deferred. Results Laboratory and Microbiology Labs Reviewed?: Yes EKG/XRAY/US/CT/MRI EKG Comment 06/16/2025 time 6:18 p.m. Ventricular rate 76 Sinus rhythm [address] wave elevation or depression MDM MDM: Differential diagnosis: Muscle strain, chronic pain, Rationale: Tests considered and ordered secondary to shared decision making include: Previous outside records reviewed: Old ER visits. Risk of complication and/or morbidity or mortality of patient management: None Medications-Per medication reconciliation Need for hospitalization: Patient does not meet criteria for hospitalization. Need for emergency major/minor surgery: No Patient is a 70-year-old female coming in complaining of chronic neck pain. Patient has been evaluated by pain specialist in his pending re-evaluation. Patient received an MRI and there was chronic changes. Patient was treated with the antispasmodics and steroids states he feels much better will be discharged in stable condition. ED Course Orders Procedure Category Date Status Time Orphenadrine Citrate PHA 06/16/25 Complete (Norflex) 18:30 Triamcinolone Acet PHA 06/16/25 Complete 40mg/Ml 1ml (Kenalog 18:30 12 Lead Ekg Tracing- EKG 06/16/25 Logged Technical 18:16 Current Medications Medications (Trade) Dose Ordered Sig/Kianna Route PRN Reason Start Time Stop Time Status Last Admin Dose Admin Orphenadrine Citrate (Norflex) 60 mg ONCE ONCE IM 06/16/25 18:30 06/16/25 18:31 DC 06/16/25 18:28 Triamcinolone Acetonide (Kenalog 40) 40 mg ONCE ONCE IM 06/16/25 18:30 06/16/25 18:31 DC 06/16/25 18:28 Vital Signs Date Time Temp Pulse Resp B/P (MAP) Pulse Ox O2 Delivery O2 Flow Rate FiO2 06/16/25 18:04 98.2 83 16 168/79 96 Room Air* 0 21 06/16/25 17:44 98.2 83 16 168/79 96 Room Air 0 DX & DISP Disposition: Discharge Departure Impression: Primary Impression: Chronic pain Additional Impression: Neck muscle spasm Condition: Stable Additional Instructions: FOLLOW-UP WITH PRIMARY CARE PROVIDER IN 1 TO 2 DAYS. TAKE MEDICATIONS DIRECTED HERE IN THE EMERGENCY ROOM. OKAY TO CONTINUE HOME MEDICATIONS UNLESS OTHERWISE DISCUSSED DURING YOUR VISIT IN THE EMERGENCY ROOM TODAY. RETURN TO YOUR NEAREST EMERGENCY ROOM IF SYMPTOMS WORSEN OR IF THERE IS NO IMPROVEMENT. CALL 911 IF YOU NEED IMMEDIATE ASSISTANCE. TAKE TYLENOL [id number] NEEDED AND IF NO CONTRAINDICATIONS ARE PRESENT. INCREASE ORAL HYDRATION. A WOUND CULTURE OR URINE CULTURE WAS ORDERED HERE IN THE EMERGENCY ROOM DEPARTMENT PLEASE FOLLOW-UP WITH PRIMARY CARE PROVIDER AND ADVISE THEM TO GET REPORTS FROM OUR FACILITY. IF YOU HAD ANY MARIA C WRAP/SPLINTS THAT WERE APPLIED HERE, PLEASE DO NOT REMOVE THEM UNTIL YOU SEE YOUR PRIMARY CARE OR SPECIALTY. Referrals: Referrals: KULDIP NEWTON MD (PCP) Time of Disposition: 18:48 VLADIMIR REARDON MD Jun 16, 2025 18:23
[2025-06-16] MEDS: TRIAMCINOLONE ACETONIDE 40 MG/ML 1ML VIAL IM ONE (18:28)
[2025-06-16] MEDS: ORPHENADRINE 60MG/2ML IM ONE (18:28)
[2025-06-16 18:49] VITALS: BP 147/70; PULSE 78; RESP 16; TEMP 98.2; O2SAT 96
--- NOTE | 2025-06-17 06:39 | EKG ---
[facility] Test Date: 2025-06-16 Test Time: 18:18:52 Pat Name: TRACIE JENKINS Department: ED Room: Gender: F Equal Opportunity Director: [id number] : 1955 Requested By: VLADIMIR REARDON Order Number: [id number] Reading MD: Claudia Goerge Measurements Intervals [place] Rate: 76 P: 35 WV: 171 QRS: 8 QRSD: 105 T: 9 QT: 404 QTc: 454 Interpretive Statements Sinus rhythm Low voltage, precordial leads Compared to ECG 08/11/2024 22:52:54 Low QRS voltage now present Electronically Signed On 06-17-2025 11:21:23 CDT by Claudia George Please click the below link to view image of tracing.
== END 2025-06-16 18:51 | disposition home or self-care (01) ==
LOC: EDH 17:42
DX: G89.29 Other chronic pain (principal); M54.2 Cervicalgia; M25.512 Pain in left shoulder; M62.838 Other muscle spasm; E11.9 Type 2 diabetes mellitus without complications; E78.00 Pure hypercholesterolemia, unspecified; I10 Essential (primary) hypertension; I48.91 Unspecified atrial fibrillation; M19.90 Unspecified osteoarthritis, unspecified site; Z79.01 Long term (current) use of anticoagulants; Z79.4 Long term (current) use of insulin; Z79.52 Long term (current) use of systemic steroids; Z79.899 Other long term (current) drug therapy; Z88.1 Allergy status to other antibiotic agents; Z88.6 Allergy status to analgesic agent; Z88.8 Allergy status to other drugs, medicaments and biological substances; Z90.710 Acquired absence of both cervix and uterus; Z98.890 Other specified postprocedural states
CPT/HCPCS: 99284; 96372 ×2; 93005; J3301; J2360

== ENCOUNTER 2025-07-22 01:08 | Emergency (ER) | payer MEDICARE ==
[~2025-07-22] VITALS: Ht 165.1 cm; Wt 85.7 kg
[2025-07-22 01:09] VITALS: TEMP 97.9
[2025-07-22 01:37] LABS: RAPID GROUP A STREP negative (NEGATIVE)
[2025-07-22 01:40] LABS: SARS-CoV-2, RNA, NAAT NEGATIVE SARS CoV-2 (NEGATIVE)
[2025-07-22 01:47] LABS: INFLUENZA TYPE A Negative For Type A (NEGATIVE); INFLUENZA TYPE B Negative For Type B (NEGATIVE)
--- NOTE | 2025-07-22 01:50 | ERN ---
ED Note History of Present Illness Stated Complaint: C/O COUGH,PHLEGM, SORE THROAT, HEADACHE,CONGESTION Chief Complaint: Cough Time Seen by MD: 01:11 Time Seen by Midlevel: 01:12 Dictation: 70-year-old female presents to the emergency department due to report of having a runny nose, sore throat and a persistent cough that has been going on for the past 5 days. She states that she was advised by a local urgent care and PCP that she only has allergies. However, she reports having some chills with no confirmed fever. Patient states that the cough is dry. She states that she started taking the Zyrtec with no resolution. Upon initial evaluation, the patient presents in no acute respiratory distress. Allergies: Coded Allergies: NSAIDS (Non-Steroidal Anti-Inflamma (Unverified Allergy, Unknown, 06/22/24) celecoxib (Unverified Allergy, Unknown, 06/22/24) cephalexin (Unverified Allergy, Unknown, 06/16/25) chlorzoxazone (Unverified Allergy, Unknown, 05/28/18) citalopram (Unverified Allergy, Unknown, 08/31/22) clonazepam (Unverified Allergy, Unknown, 05/28/18) diclofenac (Unverified Allergy, Unknown, 06/22/24) doxycycline (Unverified Allergy, Unknown, RASH, 08/22/24) etodolac (Unverified Allergy, Unknown, 06/22/24) hydroxyzine (Unverified Allergy, Unknown, 08/31/22) ibuprofen (Unverified Allergy, Unknown, 06/22/24) indomethacin (Unverified Allergy, Unknown, 06/22/24) ketoprofen (Unverified Allergy, Unknown, 06/22/24) ketorolac (Unverified Allergy, Unknown, 06/22/24) meloxicam (Unverified Allergy, Unknown, 06/22/24) metronidazole (Unverified Allergy, Unknown, RASH, 08/22/24) nabumetone (Unverified Allergy, Unknown, 06/22/24) naproxen (Unverified Allergy, Unknown, 06/22/24) piroxicam (Unverified Allergy, Unknown, 06/22/24) sulindac (Unverified Allergy, Unknown, 06/22/24) vancomycin (Unverified Allergy, Unknown, 06/16/25) diltiazem (Unverified Adverse Reaction, Unknown, 05/16/22) side effect voiced per pt enalapril (Unverified Adverse Reaction, Unknown, 05/16/22) side effect voiced per pt hydrochlorothiazide (Unverified Adverse Reaction, Unknown, 05/16/22) side effect voiced per patient Home Meds Active Scripts Gabapentin (Gabapentin) 400 Mg Capsule, 1 CAP PO TID for 10 Days, #30 CAP 0 Refills Prov:JUDITH LUIS MD 02/06/25 Pregabalin (Lyrica) 25 Mg Cap, 1 CAP PO BID for 30 Days, #60 CAP 0 Refills Prov:JUDITH LUIS MD 02/06/25 Oxycodone HCl (Oxycodone HCl) 5 Mg Capsule, 1 CAP PO QIDP PRN for pain for 5 Days, #15 CAP 0 Refills Prov:JUDITH LUIS MD 02/06/25 Prednisone (Prednisone) 20 Mg Tablet, 1 TAB PO BID for 2 Days, #4 TAB 0 Refills Prov:BRADLEY CLIFTON DO 08/22/24 Amoxicillin/Potassium Clav (Amox Tr-K Clv 875-125 mg Tab) 875 Mg-125 Mg Tablet, 1 TAB PO BID for 10 Days, #20 TAB 0 Refills Prov:BRADLEY CLIFTON DO 08/22/24 Acetaminophen with Codeine (Acetaminophen-Cod #3 Tablet) 300 Mg-30 Mg Tablet, 1 TAB PO Q6HPRN PRN for pain for 5 Days, #10 TAB 0 Refills Prov:ASHER VIRGEN NP 08/18/24 Reported Medications Sennosides (Senokot) 8.6 Mg Tablet, 1 TAB PO HS for constipation for 20 Days, #40 TAB 0 Refills 08/11/24 Lifitegrast (Xiidra) 5 % Droperette, 1 EACH OP DAILY, DROP 08/11/24 Insulin Glargine,Hum.rec.anlog ([place]o Solostar) 300 Unit/Ml (1.5 Ml) Insuln.pen, 30 UNIT SQ DAILY, SYRINGE 08/11/24 Apixaban (Eliquis) 5 Mg Tablet, 1 TAB PO BID for 30 Days, #60 TAB 0 Refills 08/11/24 Sitagliptin Phosphate (Januvia) 100 Mg Tablet, 1 TAB PO DAILYDINNER for 30 Days, #30 TAB 0 Refills 08/11/24 Metoprolol Succinate (Metoprolol Succinate) 50 Mg Tab.er.24h, 1 TAB PO DAILYDINNER for 30 Days, #30 TAB 0 Refills 08/11/24 Losartan Potassium (Losartan Potassium) 100 Mg Tablet, 100 MG PO AM, TAB 05/15/22 Metformin HCl (Metformin HCl) 500 Mg Tablet, 500 MG PO AM, TAB 05/15/22 Past Medical History Past Medical History: A-Fib, Arthritis, Diabetes-Type II, Diverticulosis, Hypertension, Other Additional Past Medical Hx: HERNIA Surgical History: Hysterectomy, Tonsillectomy Surgical History Other: HERNIA REPAIR Family History: Negative Social History: Negative, Lives with family History: Not Applicable RN Note Reviewed/Agreed w/PFSH: Yes Review of System Dictation Constitutional: Chills ENT: Runny nose, sore throat Respiratory: Nonproductive cough Initial Vital Sign VS Vital Signs Date Time Temp Pulse Resp B/P (MAP) Pulse Ox O2 Delivery O2 Flow Rate FiO2 07/22/25 01:09 97.9 68 20 169/75 97 Room Air* 0 21 Physical Exam Dictation General: awake, alert, NAD Head/Face: Normocephalic, atraumatic Eyes: PERRL, EOMI ENT: Oral mucosa moist, bilateral nasal congestion, erythematous pharynx Neck: Trachea midline, supple Cardiovascular: RRR, no edema Respiratory: Symmetrical, non-labored, scattered rhonchi. Abdomen: Soft, non-tender, non-distended, no guarding. Skin: Warm, dry, good turgor, no rash MS/Extremity: Pulses equal, no cyanosis, neurovascular intact, FROM Neuro: COAx4, GCS 15, steady gait, Psych: Normal behavior, mood, and affect normal Results (Laboratory/Radiology) Laboratory/Radiology Laboratory Tests Test 07/22/25 01:19 Influenza Type A Antigen Negative For Type A Influenza Type B Antigen Negative For Type B SARS-CoV-2, RNA, NAAT NEGATIVE SARS CoV-2 Group A Streptococcus Rapid negative (NEGATIVE) Labs Reviewed?: Yes X-RAY Comment: Chest x-ray with the normal-appearing cardiac silhouette and no infiltrates as interpreted by me. ED Course ED Course Orders Procedure Category Date Status Time Covid Rna Naat LAB 07/22/25 Complete 01:17 Influenza Type A & B, LAB 07/22/25 Complete Rapid 01:17 Rapid (Group A Strep) LAB 07/22/25 Complete 01:17 Chest 1vw RAD 07/22/25 Taken 01:21 Vital Signs Date Time Temp Pulse Resp B/P (MAP) Pulse Ox O2 Delivery O2 Flow Rate FiO2 07/22/25 01:09 97.9 68 20 169/75 97 Room Air 07/22/25 01:09 97.9 68 20 169/75 97 Room Air* 0 21 Medical Decision Making MDM MDM: Differential diagnosis: Pneumonia, acute bronchitis, viral illness. Rationale: Tests considered and ordered secondary to shared decision making include: Previous outside records reviewed: Old ER visits. Risk of complication and/or morbidity or mortality of patient management: None Medications-Per medication reconciliation Need for hospitalization: Patient does not meet criteria for hospitalization. Need for emergency major/minor surgery: No There are no social concerns with this patient. Prescription drug management Prescriptions will include symptomatic care Patient's prior external medical records from other ER visits were reviewed by me as indicated. Prior testing and results from previous visits were reviewed. Prior tests were taken into account with medical decision making and resource utilization, independent historian/historians were used to obtain complete medical history. I independently interpreted the test that were performed, results were reviewed by me and considered findings on radiology if ordered. Medical management and examination interpretation discussions were had by me with other qualified healthcare professionals as indicated for the patient's care. DX & DISP Disposition: Discharge Departure Impression: Primary Impression: Acute bronchitis Condition: Stable Scripts Benzonatate (Tessalon Perles) 100 Mg Cap 1 CAP PO TID for cough for 10 Days, #30 CAP 0 Refills Prov: EBONY DOWNS BAIL AGENT 07/22/25 Albuterol Sulfate (Ventolin Hfa/Proventil Hfa/Proair Hfa) 90 Mcg Puff 2 PUFF IH Q4H for WHEEZING, #1 INHALER 0 Refills Prov: EBONY DOWNS BAIL AGENT 07/22/25 Prednisone (Prednisone) 20 Mg Tablet 1 TAB PO DAILY for 3 Days, #3 TAB 0 Refills TAKE 1 TAB BY MOUTH THREE TIMES PER DAY X3 DAYS, THEN TAKE 1 TAB BY MOUTH TWICE A DAY X2 DAYS, THEN TAKE 1 TAB BY MOUTH ONCE A DAY X1 DAY. Prov: EBONY DOWNS 07/22/25 Referrals: KULDIP NEWTON MD (PCP) Time of Disposition: 02:01 EBONY DOWNS Jul 22, 2025 01:50
[2025-07-22] MEDS ORDERED: ALBUHFA IH (02:01)
[2025-07-22] MEDS ORDERED: PRED20TA3 PO (02:01)
[2025-07-22] MEDS ORDERED: BENZ-39 PO (02:01)
--- NOTE | 2025-07-22 02:08 | HMCIMG ---
EXAM: CR Chest, 1 view CLINICAL HISTORY: Cough. COMPARISON: Chest radiograph dated 08/11/2024. FINDINGS: The lungs show no infiltrates or other acute findings. No pleural effusion or pneumothorax. The cardiomediastinal silhouette is within normal limits. No acute osseous abnormality. IMPRESSION: No acute cardiopulmonary process is evident. Compared to the prior study, there is no significant interval change. /[place]
[2025-07-22 02:48] VITALS: BP 155/72; PULSE 63; RESP 18; O2SAT 98
== END 2025-07-22 02:52 | disposition home or self-care (01) ==
LOC: EDH 01:08
DX: J20.9 Acute bronchitis, unspecified (principal); E11.9 Type 2 diabetes mellitus without complications; I10 Essential (primary) hypertension; I48.91 Unspecified atrial fibrillation; M19.90 Unspecified osteoarthritis, unspecified site; Z20.822 Contact with and (suspected) exposure to COVID-19; Z79.01 Long term (current) use of anticoagulants; Z79.4 Long term (current) use of insulin; Z79.52 Long term (current) use of systemic steroids; Z79.899 Other long term (current) drug therapy; Z88.1 Allergy status to other antibiotic agents; Z88.6 Allergy status to analgesic agent; Z88.8 Allergy status to other drugs, medicaments and biological substances; Z90.710 Acquired absence of both cervix and uterus; Z98.890 Other specified postprocedural states
CPT/HCPCS: 71045; 87635; 87804; 87880; 99284

== ENCOUNTER 2025-08-07 16:40 | Emergency (ER) | payer MEDICARE ==
[~2025-08-07] VITALS: Ht 165.1 cm; Wt 86.2 kg
[~2025-08-07 16:40] MED LIST changes: +ALBUHFA IH; +BENZ-39 PO
--- NOTE | 2025-08-07 17:16 | ERN ---
ED Note History of Present Illness Stated Complaint: PALPIATIONS Chief Complaint: Palpitations Time Seen by MD: 17:09 Time Seen by Midlevel: 17:09 Dictation: The Patient is a 70-year-old female with a history of diabetes, AFib on Eliquis, arthritis, anxiety who presents to the emergency department with complaints of palpitations associated with occasional shortness of breath. Patient denies any fevers, vomiting or diarrhea. Denies any chest pain. Reports she suffers from a lot of anxiety. Allergies: Coded Allergies: NSAIDS (Non-Steroidal Anti-Inflamma (Unverified Allergy, Unknown, 06/22/24) celecoxib (Unverified Allergy, Unknown, 06/22/24) cephalexin (Unverified Allergy, Unknown, 06/16/25) chlorzoxazone (Unverified Allergy, Unknown, 05/28/18) citalopram (Unverified Allergy, Unknown, 08/31/22) clonazepam (Unverified Allergy, Unknown, 05/28/18) diclofenac (Unverified Allergy, Unknown, 06/22/24) doxycycline (Unverified Allergy, Unknown, RASH, 08/22/24) etodolac (Unverified Allergy, Unknown, 06/22/24) hydroxyzine (Unverified Allergy, Unknown, 08/31/22) ibuprofen (Unverified Allergy, Unknown, 06/22/24) indomethacin (Unverified Allergy, Unknown, 06/22/24) ketoprofen (Unverified Allergy, Unknown, 06/22/24) ketorolac (Unverified Allergy, Unknown, 06/22/24) meloxicam (Unverified Allergy, Unknown, 06/22/24) metronidazole (Unverified Allergy, Unknown, RASH, 08/22/24) nabumetone (Unverified Allergy, Unknown, 06/22/24) naproxen (Unverified Allergy, Unknown, 06/22/24) piroxicam (Unverified Allergy, Unknown, 06/22/24) sulindac (Unverified Allergy, Unknown, 06/22/24) vancomycin (Unverified Allergy, Unknown, 06/16/25) diltiazem (Unverified Adverse Reaction, Unknown, 05/16/22) side effect voiced per pt enalapril (Unverified Adverse Reaction, Unknown, 05/16/22) side effect voiced per pt hydrochlorothiazide (Unverified Adverse Reaction, Unknown, 05/16/22) side effect voiced per patient Home Meds Active Scripts Benzonatate (Tessalon Perles) 100 Mg Cap, 1 CAP PO TID for cough for 10 Days, #30 CAP 0 Refills Prov:EBONY DOWNS 07/22/25 Albuterol Sulfate (Ventolin Hfa/Proventil Hfa/Proair Hfa) 90 Mcg Puff, 2 PUFF IH Q4H for WHEEZING, #1 INHALER 0 Refills Prov:EBONY DOWNS 07/22/25 Prednisone (Prednisone) 20 Mg Tablet, 1 TAB PO DAILY for 3 Days, #3 TAB 0 Refills TAKE 1 TAB BY MOUTH THREE TIMES PER DAY X3 DAYS, THEN TAKE 1 TAB BY MOUTH TWICE A DAY X2 DAYS, THEN TAKE 1 TAB BY MOUTH ONCE A DAY X1 DAY. Prov:EBONY DOWNS 07/22/25 Gabapentin (Gabapentin) 400 Mg Capsule, 1 CAP PO TID for 10 Days, #30 CAP 0 Refills Prov:JUDITH LUIS MD 02/06/25 Pregabalin (Lyrica) 25 Mg Cap, 1 CAP PO BID for 30 Days, #60 CAP 0 Refills Prov:JUDITH LUIS MD 02/06/25 Oxycodone HCl (Oxycodone HCl) 5 Mg Capsule, 1 CAP PO QIDP PRN for pain for 5 Days, #15 CAP 0 Refills Prov:JUDITH LUIS MD 02/06/25 Prednisone (Prednisone) 20 Mg Tablet, 1 TAB PO BID for 2 Days, #4 TAB 0 Refills Prov:BRADLEY CLIFTON DO 08/22/24 Amoxicillin/Potassium Clav (Amox Tr-K Clv 875-125 mg Tab) 875 Mg-125 Mg Tablet, 1 TAB PO BID for 10 Days, #20 TAB 0 Refills Prov:BRADLEY CLIFTON DO 08/22/24 Acetaminophen with Codeine (Acetaminophen-Cod #3 Tablet) 300 Mg-30 Mg Tablet, 1 TAB PO Q6HPRN PRN for pain for 5 Days, #10 TAB 0 Refills Prov:ASHER VIRGEN NP 08/18/24 Reported Medications Sennosides (Senokot) 8.6 Mg Tablet, 1 TAB PO HS for constipation for 20 Days, #40 TAB 0 Refills 08/11/24 Lifitegrast (Xiidra) 5 % Droperette, 1 EACH OP DAILY, DROP 08/11/24 Insulin Glargine,Hum.rec.anlog (Obie Solostar) 300 Unit/Ml (1.5 Ml) Insuln.pe n, 30 UNIT SQ DAILY, SYRINGE 08/11/24 Apixaban (Eliquis) 5 Mg Tablet, 1 TAB PO BID for 30 Days, #60 TAB 0 Refills 08/11/24 Sitagliptin Phosphate (Januvia) 100 Mg Tablet, 1 TAB PO DAILYDINNER for 30 Days, #30 TAB 0 Refills 08/11/24 Metoprolol Succinate (Metoprolol Succinate) 50 Mg Tab.er.24h, 1 TAB PO DAILYDINNER for 30 Days, #30 TAB 0 Refills 08/11/24 Losartan Potassium (Losartan Potassium) 100 Mg Tablet, 100 MG PO AM, TAB 05/15/22 Metformin HCl (Metformin HCl) 500 Mg Tablet, 500 MG PO AM, TAB 05/15/22 Past Medical History Past Medical History: Anxiety, Diabetes-Type II, Hypertension, Other Additional Past Medical Hx: osteoarthritis Surgical History: Hysterectomy, Tonsillectomy, Other Surgical History Other: hernia repair Family History: Negative Social History: Negative, Lives with family History: Not Applicable RN Note Reviewed/Agreed w/PFSH: Yes Review of System Dictation Constitutional: Negative for fever,chills, and weight loss Eyes: Negative for injury, pain,redness, and discharge ENT: Negative for injury,pain or swelling Cardiovascular: Negative for chest pain, and edema positive for palpitations Respiratory: Negative for shortness of breath, cough, and wheezing, Abdomen/GI: Negative for abdominal pain, nausea, vomiting, diarrhea, and constipation Back: Negative for injury and pain : Negative for injury, bleeding and discharge MS/Extremity: Negative for injury and deformity Skin: Negative for rash, and discoloration Neuro: Negative for headache, weakness, numbness, tingling, and seizure Psych: Negative for suicide ideation, homicidal ideation, and hallucinations Initial Vital Sign VS Vital Signs Date Time Temp Pulse Resp B/P (MAP) Pulse Ox O2 Delivery O2 Flow Rate FiO2 08/07/25 16:43 98.1 102 18 171/81 96 0 10/3/25 16:47 Room Air* 21 Physical Exam Dictation Vital Signs reviewed General Appearance: Alert, oriented x 3, no acute distress, well developed, nourished. Head and Face: non-traumatic. Eyes: PERRL, pink conjunctivas, eyelid no trauma, anterior chamber with arcus senilis. Ears: Pinnas intact and no signs of trauma or erythema ear canals clear and no discharge TM no erythema Nose: No discharge, no bleeding. Oropharynx: Mouth normal, tongue pink. pharynx clear,no erythema, tonsils no exudates, no abscesses noted, mucous membrane moist Neck: Supple, non-tender, no thyromegaly, no masses, no JVD, no bruits Breast:Deferred Chest:No tenderness, no crepitus, no paradoxical movement, no retractions Lungs:Clear, well-ventilated, symmetric, no rales, no wheezing, no rhonchi, no stridor, good breath sounds bilaterally Heart: Regular rate, regular rhythm, no murmur, no gallops Vascular: no peripheral edema, Abdomen: Soft, positive bowel sounds, nondistended, no guarding, nontender, no rebound, no masses no hepatomegaly, no splenomegaly, no Latham's sign, no hernias. Rectal: Deferred Genital: Deferred Neurological: Normal speech, motor function intact, sensory function intact Musculoskeletal: Neck nontender, full range of motion, back nontender, full range of motion, Extremities: nontender, full range of motion Skin: Color pink, dry, no turgor, no rash, no lacerations, no abrasions, no contusions. Lymphatic: Deferred Results (Laboratory/Radiology) Laboratory/Radiology Laboratory Tests Test 08/07/25 17:00 08/07/25 17:20 Urine Color LIGHT-YELLOW (YELLOW) Urine Appearance CLEAR (CLEAR) Urine pH 6.0 (5.0-8.0) Urine Specific [place] 1.009 (1.001-1.031) Urine Protein NEGATIVE mg/dL (NEGATIVE) Urine Glucose (UA) NEGATIVE mg/dL (NEGATIVE) Urine Ketones NEGATIVE mg/dL (NEGATIVE) Urine Occult Blood NEGATIVE (NEGATIVE) Urine Nitrate NEGATIVE (NEGATIVE) Urine Bilirubin NEGATIVE mg/dL (NEGATIVE) Urine Urobilinogen 0.2 mg/dL (0.2-1.0) Urine Leukocyte Esterase NEGATIVE Diogo/uL White Blood Count 8.4 K/uL (4.8-10.8) Red Blood Count 3.75 MIL/uL (4.00-5.50) L Hemoglobin 12.4 g/dL (12.0-16.0) Hematocrit 36.4 % (36-48) Mean Corpuscular Volume 97.1 fL (79-99) Mean Corpuscular Hemoglobin 33.1 pg (27.0-33.0) H Mean Corpuscular Hemoglobin Concent 34.1 g/dL (32.0-36.0) Red Cell Distribution Width 12.8 % (11.0-15.5) Platelet Count 248 K/uL (130-400) Mean Platelet Volume 10.6 fL (7.5-10.5) H Immature Granulocyte % (Auto) 0.2 % (0-1) Neutrophils (%) (Auto) 67.7 % (40.0-77.0) Lymphocytes (%) (Auto) 21.9 % (21.0-51.0) Monocytes (%) (Auto) 8.3 % (3.0-13.0) Eosinophils (%) (Auto) 1.3 % (0.0-8.0) Basophils (%) (Auto) 0.6 % (0.0-5.0) Neutrophils # (Auto) 5.7 K/uL (1.8-7.7) Lymphocytes # (Auto) 1.8 K/uL (1.0-4.8) Monocytes # (Auto) 0.7 K/uL (0.1-1.0) Eosinophils # (Auto) 0.11 K/uL (0.00-0.70) Basophils # (Auto) 0.05 K/uL (0.00-0.20) Absolute Immature Granulocyte (auto 0.02 K/uL (0-1) Nucleated Red Blood Cells 0.0 % (0.0-0.19) Sodium Level 140 mmol/L (136-145) Potassium Level 3.7 mmol/L (3.5-5.1) Chloride Level 104 mmol/L (101-111) Carbon Dioxide Level 27 mmol/L (21-32) Blood Urea Nitrogen 12 mg/dL (7-18) Creatinine 0.6 mg/dL (0.5-1.0) Glomerular Filtration Rate Calc 98 mL/min (>90) Random Glucose 197 mg/dL (70-105) H Total Calcium 8.4 mg/dL (8.5-10.1) L Magnesium Level 1.90 mg/dL (1.80-2.40) Total Creatine Kinase 130 U/L (21-232) # Troponin I High Sensitivity 5 ng/L (4-50) REASON: cp ORDERING PHYSICIAN: KYLE RIBEIRO BATTERY CHARGER PROCEDURE: CXR1VW - CHEST 1VW EXAM: CR Chest, 1 View. CLINICAL HISTORY: cp COMPARISON: None provided. FINDINGS: LUNGS: The lungs show no infiltrate or other acute finding. PLEURAL SPACES: No pleural effusion or pneumothorax. MEDIASTINUM: The cardiomediastinal silhouette is within normal limits. BONES: No aggressive appearing osseous lesion seen. IMPRESSION: No acute cardiopulmonary pathology is evident. /[place] Labs Reviewed?: Yes EKG: (+) rhythm (Sinus rhythm) EKG Comment: Date:08/07/2025 Time:1643 Ventricular rate:90 WV interval:164 QRS duration:101 QT/QTc:381/468 EKG interpretation: Sinus rhythm Reviewed by ED Attending no STEMI ED Course ED Course Orders Procedure Category Date Status Time 12 Lead Ekg Tracing- EKG 08/07/25 Logged Technical 17:04 Cbc With Differential LAB 08/07/25 Complete 17:14 Chest 1vw RAD 08/07/25 Resulted 17:14 0.9%Nacl 1000ml (Ns PHA 08/07/25 In Process 1000ml) 17:30 Magnesium LAB 08/07/25 Complete 17:14 Troponin I High LAB 08/07/25 Complete Sensitivity 17:14 Urinalysis Profile LAB 08/07/25 Complete 17:14 Basic Metabolic Panel LAB 08/07/25 Complete 17:14 Creatine Kinase, Total LAB 08/07/25 Complete 17:14 Current Medications Medications (Trade) Dose Ordered Sig/Kianna Route PRN Reason Start Time Stop Time Status Last Admin Dose Admin Sodium Chloride 1,000 ml @ 125 mls/hr ONCE IV 08/07/25 17:30 08/08/25 17:29 08/07/25 18:37 Vital Signs Date Time Temp Pulse Resp B/P (MAP) Pulse Ox O2 Delivery O2 Flow Rate FiO2 08/07/25 16:47 98.1 102 18 171/81 96 Room Air* 0 21 08/07/25 16:43 98.1 102 18 171/81 96 0 Medical Decision Making MDM The Patient is a 70-year-old female with a history of diabetes, AFib on Eliquis, arthritis, anxiety who presents to the emergency department with complaints of palpitations associated with occasional shortness of breath. Patient denies any fevers, vomiting or diarrhea. Denies any chest pain. Reports she suffers from a lot of anxiety. CBC showed no leukocytosis, no anemia, chemistry showed no electrolyte imbalance, negative troponin, normal renal function, urinalysis was unremarkable. chest xray showed no acute pathology. Patient reports that she feels better after fluids. Wells risk for PE low, patient with no chest pain, no signs of DVT, no tachycardia, no hypoxemia. On physical exam patient is in no acute distress, non toxic appearance, stable vital signs. Patient will be discharge to follow up with PCP. Differential diagnosis: Electrolyte imbalance, dehydration, anxiety, acute kidney injury, ACS Need for hospitalization: Patient does not meet criteria for hospitalization. There are no social concerns with this patient. DX & DISP Disposition: Discharge Departure Impression: Primary Impression: Palpitations Additional Impression: Anxiety Condition: Stable Additional Instructions: Your labs were unremarkable , your ekg and xray were unremarkable. Please follow up with your pcp in 1-2 days. If anything worsen please return to ER. FOLLOW-UP WITH PRIMARY CARE PROVIDER IN 1 TO 2 DAYS. TAKE MEDICATIONS DIRECTED HERE IN THE EMERGENCY ROOM. OKAY TO CONTINUE HOME MEDICATIONS UNLESS OTHERWISE DISCUSSED DURING YOUR VISIT IN THE EMERGENCY ROOM TODAY. RETURN TO YOUR NEAREST EMERGENCY ROOM IF SYMPTOMS WORSEN OR IF THERE IS NO IMPROVEMENT. CALL 911 IF YOU NEED IMMEDIATE ASSISTANCE. TAKE TYLENOL [id number] NEEDED AND IF NO CONTRAINDICATIONS ARE PRESENT. INCREASE ORAL HYDRATION. A WOUND CULTURE OR URINE CULTURE WAS ORDERED HERE IN THE EMERGENCY ROOM DEPARTMENT PLEASE FOLLOW-UP WITH PRIMARY CARE PROVIDER AND ADVISE THEM TO GET REPEAT PORTS FROM OUR FACILITY. IF YOU HAD ANY MARIA C WRAP/SPLINTS THAT WERE APPLIED HERE, PL EASE DO NOT REMOVE THEM UNTIL YOU SEE YOUR PRIMARY CARE OR SPECIALTY. Referrals: KULDIP NEWTON MD (PCP) Time of Disposition: 18:42 I have reviewed the case, and I agree with, Diagnosis and Plan KYLE RIBEIRO Aug 07, 2025 17:16
[2025-08-07 17:29] LABS: IMMATURE GRANULOCYTE ABSOLUTE 0.02 K/uL (0-1); NUCLEATED RED BLOOD CELLS 0.0 % (0.0-0.19); PLATELET COUNT (AUTO) 248 K/uL (130-400); RED BLOOD CELL COUNT(AUTO) 3.75 MIL/uL (4.00-5.50); RED CELL DISTRIBUTION WIDTH 12.8 % (11.0-15.5); WHITE BLOOD COUNT (AUTO) 8.4 K/uL (4.8-10.8)
[2025-08-07 17:29] LABS: ADD UA MICROSCOPIC NO; APPEARANCE,URINE CLEAR (CLEAR); GLUCOSE, URINE (UA) NEGATIVE (NEGATIVE); LEUKOCYTE ESTERASE ,URINE NEGATIVE Leu/uL (NEGATIVE); NITRATE,URINE NEGATIVE (NEGATIVE); OCCULT BLOOD,URINE NEGATIVE (NEGATIVE)
[2025-08-07 17:36] LABS: CREATININE 0.6 mg/dL (0.5-1.0); GLOMERULAR FILTR. RATE CALC 98.0 mL/min (>90); GLUCOSE,RANDOM 197.0 mg/dL (70-105); SODIUM SERUM 140.0 mmol/L (136-145); UREA NITROGEN, BLOOD 12.0 mg/dL (7-18)
[2025-08-07 17:45] LABS: CREATINE KINASE, TOTAL 130.0 U/L (21-232)
[2025-08-07 18:15] VITALS: BP 155/63; PULSE 68; RESP 20; TEMP 98.1; O2SAT 99
--- NOTE | 2025-08-07 18:24 | HMCIMG ---
EXAM: CR Chest, 1 View. CLINICAL HISTORY: cp COMPARISON: None provided. FINDINGS: LUNGS: The lungs show no infiltrate or other acute finding. PLEURAL SPACES: No pleural effusion or pneumothorax. MEDIASTINUM: The cardiomediastinal silhouette is within normal limits. BONES: No aggressive appearing osseous lesion seen. IMPRESSION: No acute cardiopulmonary pathology is evident. /[place]
[2025-08-07] MEDS: 0.9%NACL 1000ML 1,000 ML IV SCH (18:37)
--- NOTE | 2025-08-07 18:55 | EKG ---
[facility] Test Date: 2025-08-07 Test Time: 16:43:48 Pat Name: TRACIE JENKINS Department: ED Room: Gender: F Certified Hand Therapist: [id number] : 1955 Requested By: CHET PRESSLEY Order Number: [id number] Reading MD: Dennys Landaverde Measurements Intervals [place] Rate: 90 P: 39 VT: 164 QRS: -5 QRSD: 101 T: 24 QT: 381 QTc: 468 Interpretive Statements Sinus rhythm Compared to ECG 06/16/2025 18:18:52 No significant changes Electronically Signed On 08-08-2025 11:59:37 CDT by Dennys Landaverde Please click the below link to view image of tracing.
== END 2025-08-07 19:00 | disposition home or self-care (01) ==
LOC: EDH 16:40
DX: R00.2 Palpitations (principal); F41.9 Anxiety disorder, unspecified; E11.9 Type 2 diabetes mellitus without complications; I10 Essential (primary) hypertension; M19.90 Unspecified osteoarthritis, unspecified site; Z79.01 Long term (current) use of anticoagulants; Z79.4 Long term (current) use of insulin; Z79.52 Long term (current) use of systemic steroids; Z79.899 Other long term (current) drug therapy; Z88.1 Allergy status to other antibiotic agents; Z88.6 Allergy status to analgesic agent; Z88.8 Allergy status to other drugs, medicaments and biological substances; Z90.710 Acquired absence of both cervix and uterus; Z98.890 Other specified postprocedural states
CPT/HCPCS: 99285; 96360; 71045; 82550; 83735; 84484; 80048; 85025; 81003; 36415; 93005; J7030

== ENCOUNTER 2025-11-01 22:34 | Emergency (ER) | payer MEDICARE ==
[~2025-11-01] VITALS: Ht 165.1 cm; Wt 88.5 kg
--- NOTE | 2025-11-01 22:37 | NUR ---
FLU, COVID AND STREP SWABS COLLECTED AND SENT
--- NOTE | 2025-11-01 22:39 | ERN ---
ED Note History of Present Illness Stated Complaint: COUGH, WATERY EYES, SINUS PRESSURE, Chief Complaint: Flu Symptoms Time Seen by MD: 22:36 Dictation: PATIENT IS A 70-YEAR-OLD FEMALE COMING IN WITH FLU-LIKE SYMPTOMS TO INCLUDE CLEAR RHINITIS/SORE THROAT WITH PAINFUL SWALLOWING/FRONTAL SINUS HEADACHE. SHE HAS HAD LOW-GRADE FEVER CHILLS. NO NAUSEA VOMITING NO LOSS OF TASTE OR SMELL. SHE STATES SHE IS UNABLE TO TAKE ANY NSAIDS, HAS TAKEN TYLENOL PRIOR TO ARRIVAL FOR PAIN. HAS BEEN NO BACK PAIN NO SOB. Allergies: Coded Allergies: NSAIDS (Non-Steroidal Anti-Inflamma (Unverified Allergy, Unknown, 06/22/24) celecoxib (Unverified Allergy, Unknown, 06/22/24) cephalexin (Unverified Allergy, Unknown, 06/16/25) chlorzoxazone (Unverified Allergy, Unknown, 05/28/18) citalopram (Unverified Allergy, Unknown, 08/31/22) clonazepam (Unverified Allergy, Unknown, 05/28/18) diclofenac (Unverified Allergy, Unknown, 06/22/24) doxycycline (Unverified Allergy, Unknown, RASH, 08/22/24) etodolac (Unverified Allergy, Unknown, 06/22/24) hydroxyzine (Unverified Allergy, Unknown, 08/31/22) ibuprofen (Unverified Allergy, Unknown, 06/22/24) indomethacin (Unverified Allergy, Unknown, 06/22/24) ketoprofen (Unverified Allergy, Unknown, 06/22/24) ketorolac (Unverified Allergy, Unknown, 06/22/24) meloxicam (Unverified Allergy, Unknown, 06/22/24) metronidazole (Unverified Allergy, Unknown, RASH, 08/22/24) nabumetone (Unverified Allergy, Unknown, 06/22/24) naproxen (Unverified Allergy, Unknown, 06/22/24) piroxicam (Unverified Allergy, Unknown, 06/22/24) sulindac (Unverified Allergy, Unknown, 06/22/24) vancomycin (Unverified Allergy, Unknown, 06/16/25) diltiazem (Unverified Adverse Reaction, Unknown, 05/16/22) side effect voiced per pt enalapril (Unverified Adverse Reaction, Unknown, 05/16/22) side effect voiced per pt hydrochlorothiazide (Unverified Adverse Reaction, Unknown, 05/16/22) side effect voiced per patient Home Meds Active Scripts Benzonatate (Tessalon Perles) 100 Mg Cap, 1 CAP PO TID for cough for 10 Days, #30 CAP 0 Refills Prov:EBONY DOWNS 07/22/25 Albuterol Sulfate (Ventolin Hfa/Proventil Hfa/Proair Hfa) 90 Mcg Puff, 2 PUFF IH Q4H for WHEEZING, #1 INHALER 0 Refills Prov:EBONY DOWNS 07/22/25 Prednisone (Prednisone) 20 Mg Tablet, 1 TAB PO DAILY for 3 Days, #3 TAB 0 Refills TAKE 1 TAB BY MOUTH THREE TIMES PER DAY X3 DAYS, THEN TAKE 1 TAB BY MOUTH TWICE A DAY X2 DAYS, THEN TAKE 1 TAB BY MOUTH ONCE A DAY X1 DAY. Prov:EBONY DOWNS 07/22/25 Gabapentin (Gabapentin) 400 Mg Capsule, 1 CAP PO TID for 10 Days, #30 CAP 0 Refills Prov:UJDITH LUIS MD 02/06/25 Pregabalin (Lyrica) 25 Mg Cap, 1 CAP PO BID for 30 Days, #60 CAP 0 Refills Prov:JUDITH LUIS MD 02/06/25 Oxycodone HCl (Oxycodone HCl) 5 Mg Capsule, 1 CAP PO QIDP PRN for pain for 5 Days, #15 CAP 0 Refills Prov:JUDITH LUIS MD 02/06/25 Prednisone (Prednisone) 20 Mg Tablet, 1 TAB PO BID for 2 Days, #4 TAB 0 Refills Prov:BRADLEY CLIFTON DO 08/22/24 Amoxicillin/Potassium Clav (Amox Tr-K Clv 875-125 mg Tab) 875 Mg-125 Mg Tablet, 1 TAB PO BID for 10 Days, #20 TAB 0 Refills Prov:BRADLEY CLIFTON DO 08/22/24 Acetaminophen with Codeine (Acetaminophen-Cod #3 Tablet) 300 Mg-30 Mg Tablet, 1 TAB PO Q6HPRN PRN for pain for 5 Days, #10 TAB 0 Refills Prov:ASHER VIRGEN 08/18/24 Reported Medications Sennosides (Senokot) 8.6 Mg Tablet, 1 TAB PO HS for constipation for 20 Days, #40 TAB 0 Refills 08/11/24 Lifitegrast (Xiidra) 5 % Droperette, 1 EACH OP DAILY, DROP 08/11/24 Insulin Glargine,Hum.rec.anlog (Touchynao Solostar) 300 Unit/Ml (1.5 Ml) Insuln.pen, 30 UNIT SQ DAILY, SYRINGE 08/11/24 Apixaban (Eliquis) 5 Mg Tablet, 1 TAB PO BID for 30 Days, #60 TAB 0 Refills 08/11/24 Sitagliptin Phosphate (Januvia) 100 Mg Tablet, 1 TAB PO DAILYDINNER for 30 Days, #30 TAB 0 Refills 08/11/24 Metoprolol Succinate (Metoprolol Succinate) 50 Mg Tab.er.24h, 1 TAB PO DAILYDINNER for 30 Days, #30 TAB 0 Refills 08/11/24 Losartan Potassium (Losartan Potassium) 100 Mg Tablet, 100 MG PO AM, TAB 05/15/22 Metformin HCl (Metformin HCl) 500 Mg Tablet, 500 MG PO AM, TAB 05/15/22 Past Medical History Past Medical History: Anxiety, Diabetes-Type II, Hypertension, Other Additional Past Medical Hx: osteoarthritis Surgical History: Hysterectomy, Tonsillectomy, Other Surgical History Other: hernia repair Family History: Negative Social History: Negative, Lives with family History: Not Applicable RN Note Reviewed/Agreed w/PFSH: Yes Review of System Dictation CONSTITUTIONAL: NEGATIVE EXCEPT FOR HPI FEVER CHILLS HEAD/FACE: NEGATIVE EXCEPT FOR HPI EENT: NEGATIVE EXCEPT FOR HPI FRONTAL SINUS HEADACHE, SORE THROAT RESPIRATORY: NEGATIVE EXCEPT FOR HPI DRY COUGH GASTROINTESTINAL/ABDOMINAL: NEGATIVE EXCEPT FOR HPI GENITOURINARY: NEGATIVE EXCEPT FOR HPI MUSCULOSKELETAL: NEGATIVE EXCEPT FOR HPI INTEGUMENTARY: NEGATIVE EXCEPT FOR HPI NEUROLOGICAL/PSYCH: NEGATIVE EXCEPT FOR HPI HEMATOLOGIC/LYMPHATIC: NEGATIVE EXCEPT FOR HPI ALL SYSTEMS NEGATIVE, EXCEPT NOTED ABOVE. 13 POINT REVIEW OF SYSTEMS ASSESSED AND ALL NEGATIVE EXCEPT FOR ABOVE. Initial Vital Sign VS Vital Signs Date Time Temp Pulse Resp B/P (MAP) Pulse Ox O2 Delivery O2 Flow Rate FiO2 11/01/25 22:36 99.3 86 20 149/90 98 Room Air 11/02/25 00:40 0 21 Physical Exam Dictation VITAL SIGNS REVIEWED GENERAL APPEARANCE: ALERT, ORIENTED X 3, MA ACUTE DISTRESS, WELL DEVELOPED, NOURISHED. HEAD AND FACE: NON-TRAUMATIC. EYES: PERRL, PINK CONJUNCTIVAS, EYELID NO TRAUMA, ANTERIOR CHAMBER WITH ARCUS SENILIS. EARS: PINNAS INTACT AND NO SIGNS OF TRAUMA OR ERYTHEMA EAR CANALS CLEAR AND NO DISCHARGE TM NO ERYTHEMA NOSE: CLEAR DISCHARGE, NO BLEEDING. OROPHARYNX: MOUTH NORMAL, TONGUE PINK, PHARYNX CLEAR,NO ERYTHEMA, TONSILS NO EXUDATES, NO ABSCESSES NOTED, MUCOUS MEMBRANE MOIST NECK: SUPPLE, NON-TENDER, NO THYROMEGALY, NO MASSES, NO JVD, NO BRUITS BREAST:DEFERRED CHEST:NO TENDERNESS, NO CREPITUS, NO PARADOXICAL MOVEMENT, NO RETRACTIONS LUNGS:CLEAR, WELL-VENTILATED, SYMMETRIC, NO RALES, NO WHEEZING, NO RHONCHI, NO STRIDOR, GOOD BREATH SOUNDS BILATERALLY HEART: REGULAR RATE, REGULAR RHYTHM, NO MURMUR, NO GALLOPS VASCULAR: NO PERIPHERAL EDEMA, ABDOMEN: SOFT, POSITIVE BOWEL SOUNDS, NONDISTENDED, NO GUARDING, NONTENDER, NO REBOUND, NO MASSES NO HEPATOMEGALY, NO SPLENOMEGALY, NO CISNEROS'S SIGN, NO HERNIAS. RECTAL: DEFERRED GENITAL: DEFERRED NEUROLOGICAL: NORMAL SPEECH, MOTOR FUNCTION INTACT, SENSORY FUNCTION INTACT MUSCULOSKELETAL: NECK NONTENDER, FULL RANGE OF MOTION, BACK NONTENDER, FULL RAN GE OF MOTION, EXTREMITIES: NONTENDER, FULL RANGE OF MOTION SKIN: COLOR PINK, DRY, NO TURGOR, NO RASH, NO LACERATIONS, NO ABRASIONS, NO CONTUSIONS. LYMPHATIC: DEFERRED Results (Laboratory/Radiology) Laboratory/Radiology Laboratory Tests Test 11/01/25 22:38 Influenza Type A Antigen Positive For Type A Influenza Type B Antigen Negative For Type B SARS-CoV-2 Antigen (Rapid) PRESUMPTIVE NEGATIVE Group A Streptococcus Rapid negative (NEGATIVE) 0035/SPOKE WITH LAB AND THEY SAID THEY HAD RECEIVED THE SWABS FOR FLU COVID AND STREP BECAUSE OF THE LENGTH OF STAY THAT THE SWABS HAS BEEN IN THE EMERGENCY ROOM THEY WERE MORE THAN AN HOUR OLD AND NEEDS TO BE RECOLLECTED. I SPOKE TO THE PATIENT AT LENGTH AND SHE SAID SHE WOULD LIKE A RECOLLECTED AND WE WILL WAIT FOR THE RESULTS. Labs Reviewed?: Yes ED Course ED Course Orders Procedure Category Date Status Time Covid19 (Sars Antigen LAB 11/01/25 Complete Rapid) 22:36 Influenza Type A & B, LAB 11/01/25 Complete Rapid 22:36 Rapid (Group A Strep) LAB 11/01/25 Complete 22:36 Acetaminophen With PHA 11/02/25 Complete Codeine (Tylenol-Code 01:00 Current Medications Medications (Trade) Dose Ordered Sig/Kianna Route PRN Reason Start Time Stop Time Status Last Admin Dose Admin Acetaminophen/ Codeine Phosphate (TYLenol-coDEINE TAB) 2 tab ONCE ONCE PO 11/02/25 01:00 11/02/25 01:01 DC Vital Signs Date Time Temp Pulse Resp B/P (MAP) Pulse Ox O2 Delivery O2 Flow Rate FiO2 11/02/25 00:40 99.3 85 16 180/75 100 Room Air* 0 21 11/01/25 22:36 99.3 86 20 149/90 98 Room Air Medical Decision Making MDM Patient's has a positive for influenza a, consistent with symptoms. No signs of respiratory distress. P.o. tolerant. We will DC with Tamiflu. DX & DISP Disposition: Discharge Departure Impression: Primary Impression: Influenza A Condition: Stable Scripts Oseltamivir Phosphate (Tamiflu) 75 Mg Cap 1 CAP PO BID for 5 Days, #10 CAP 0 Refills Prov: BRADLEY CLIFTON DO 11/02/25 Additional Instructions: You tested positive for influenza a, or the flu. Drink plenty of liquids. An electrolyte solution such as Gatorade has a good choice. Take Tylenol (1000 mg) times a day for fever and body aches. I have prescribed Tamiflu, which is an antiviral medication for the flu. Take as prescribed. You can take [id number] cough and cold medications as needed. Follow up with the primary doctor in48 hours for re-evaluation. Return to the emergency department sooner as needed. Referrals: KULDIP NEWTON MD (PCP) I performed a substantive portion of the visit. I have reviewed and personally made and approve the management plan that is documented in the notes by myself with DEMETRIUS/resident. I acknowledged full responsibility for the patient's management plan. PHILIP ROBERTSP Nov 01, 2025 22:39 BRADLEY CLIFTON DO Nov 02, 2025 01:42
--- NOTE | 2025-11-02 00:04 | NUR ---
PT CARE ASSUMED AT THIS TIME
[2025-11-02 00:59] LABS: RAPID GROUP A STREP negative (NEGATIVE)
[2025-11-02 01:04] LABS: INFLUENZA TYPE B Negative For Type B (NEGATIVE)
[2025-11-02 01:09] LABS: INFLUENZA TYPE A Positive For Type A (NEGATIVE)
[2025-11-02 01:10] LABS: COVID19 (SARS ANTIGEN RAPID) PRESUMPTIVE NEGATIVE (NEGATIVE)
[2025-11-02] MEDS ORDERED: OSEL75 PO (01:41)
[2025-11-02 01:46] VITALS: BP 164/71; PULSE 87; RESP 17; TEMP 99.5; O2SAT 100
== END 2025-11-02 01:54 | disposition home or self-care (01) ==
LOC: EDH 22:34
DX: J10.1 Influenza due to other identified influenza virus with other respiratory manifestations (principal); E11.9 Type 2 diabetes mellitus without complications; I10 Essential (primary) hypertension; Z79.01 Long term (current) use of anticoagulants; Z79.4 Long term (current) use of insulin; Z79.52 Long term (current) use of systemic steroids; Z79.899 Other long term (current) drug therapy; Z88.1 Allergy status to other antibiotic agents; Z88.6 Allergy status to analgesic agent; Z88.8 Allergy status to other drugs, medicaments and biological substances; Z90.710 Acquired absence of both cervix and uterus; Z98.890 Other specified postprocedural states; Z20.822 Contact with and (suspected) exposure to COVID-19
CPT/HCPCS: 87426; 87804; 87880; 99283